=== PATIENT | female | born 1935 | race Caucasian/White ===

== ENCOUNTER → 2016-12-28 | Outpatient (REF) | payer MEDICARE, BC, MEDICAID ==
[~2016-12-28] MED LIST: /WARF5TA PO; AMBIEN PO; CALCIUM PO; CORE25TA PO; GLUC500C4 PO; LISINOPRIL/HCTZ PO; PENTASA PO; TYLE-18 PO; TYLE650T25 PO; VITD PO; ZEST20TA8 PO; [UNRECOGNIZED DRUG - CODE] PO
[2016-12-28 12:57] LABS: ALBUMIN 3.9 GM/DL (3.2-5.2); ALBUMIN/GLOBULIN RATIO 1.34 (1.00-1.93); BILIRUBIN,TOTAL 0.4 MG/DL (0.2-1.0); CALCIUM LEVEL 10.2 MG/DL (8.8-10.2); CREATININE FOR GFR 1.38 MG/DL (0.55-1.02); GLOMERULAR FILTRATION RATE 38.9 (>32); POTASSIUM SERUM 4.2 MEQ/L (3.5-5.1); TOTAL PROTEIN 6.8 GM/DL (6.4-8.2)
== END ==
LOC: M LAB REF 11:57
PROVIDERS: ATTEND Internal Medicine
DX: I10 Essential (primary) hypertension (principal)

== ENCOUNTER → 2017-06-29 | Outpatient (REF) | payer MEDICARE, BC, MEDICAID ==
[2017-06-29 12:02] LABS: MEAN CORPUSCULAR HEMOGLOBIN 30.6 pg (27.0-33.0); MEAN CORPUSCULAR HGB CONC 33.4 g/dl (32.0-36.5); MEAN CORPUSCULAR VOLUME 91.5 fl (80.0-96.0); RED CELL DISTRIBUTION WIDTH 13.4 % (11.5-14.5); WHITE BLOOD COUNT 5.5 K/mm3 (4.0-10.0)
[2017-06-29 12:15] LABS: ALBUMIN/GLOBULIN RATIO 1.33 (1.00-1.93); BILIRUBIN,TOTAL 0.6 MG/DL (0.2-1.0); CALCIUM LEVEL 9.9 MG/DL (8.8-10.2); CREATININE FOR GFR 1.3 MG/DL (0.55-1.02); GLOMERULAR FILTRATION RATE 41.6 (>32); POTASSIUM SERUM 4.1 MEQ/L (3.5-5.1); URIC ACID 8.1 MG/DL (2.6-6.0)
== END ==
LOC: M SFHCPLAZ 09:03
PROVIDERS: ATTEND Internal Medicine
DX: E78.00 Pure hypercholesterolemia, unspecified (principal); Z85.42 Personal history of malignant neoplasm of other parts of uterus; I10 Essential (primary) hypertension; M10.9 Gout, unspecified; E55.9 Vitamin D deficiency, unspecified

== ENCOUNTER → 2017-07-17 | Outpatient (REF) | payer MEDICARE, BC, MEDICAID ==
[2017-07-17 15:51] LABS: INR 3.2
== END ==
LOC: M SFHCPLAZ 15:29
PROVIDERS: ATTEND Nurse Practitioner Adult Health
DX: Z79.01 Long term (current) use of anticoagulants (principal)

== ENCOUNTER → 2018-01-31 | Outpatient (REF) | payer MEDICARE, BC, MEDICAID ==
[2018-01-31 21:29] LABS: ANION GAP 9 MEQ/L (8-16); BLOOD UREA NITROGEN 23 MG/DL (7-18); CALCIUM LEVEL 9.7 MG/DL (8.8-10.2); CARBON DIOXIDE LEVEL 26 MEQ/L (21-32); CHLORIDE LEVEL 109 MEQ/L (98-107); CREATININE FOR GFR 1.43 MG/DL (0.55-1.30); GLOMERULAR FILTRATION RATE 37.2 (>32); GLUCOSE, FASTING 91 MG/DL (70-100); POTASSIUM SERUM 4.6 MEQ/L (3.5-5.1); SODIUM LEVEL 144 MEQ/L (136-145)
[2018-01-31 21:40] LABS: PTH INTACT 171.2 PG/ML (18.5-88.0)
== END ==
LOC: M LAB REF 21:05
DX: N18.3 Chronic kidney disease, stage 3 (moderate) (principal)
CPT/HCPCS: 80048

== ENCOUNTER → 2018-02-25 | Outpatient (CLI) | payer MEDICARE, BC, MEDICAID ==
[2018-02-25 15:21] LABS: HEMATOCRIT 32.4 % (36.0-47.0); HEMOGLOBIN 10.5 g/dl (12.0-15.5); MEAN CORPUSCULAR HEMOGLOBIN 28.5 pg (27.0-33.0); MEAN CORPUSCULAR HGB CONC 32.4 g/dl (32.0-36.5); PLATELET COUNT, AUTOMATED 159 10^3/uL (150-450); RED BLOOD COUNT 3.68 10^6/uL (4.00-5.40); RED CELL DISTRIBUTION WIDTH 14.5 % (11.5-14.5); WHITE BLOOD COUNT 14.7 10^3/uL (4.0-10.0)
[2018-02-25 15:29] LABS: POSITIVE MORPH POS FLAG
[2018-02-25 15:30] LABS: ADD MANUAL DIFFER YES; DIFF SLIDE NUMBER 328
[2018-02-25 15:39] LABS: ALBUMIN/GLOBULIN RATIO 0.94 (1.00-1.93); ALKALINE PHOSPHATASE 110 U/L (45-117); ALT/SGPT 40 U/L (12-78); ANION GAP 8 MEQ/L (8-16); AST/SGOT 47 U/L (7-37); BILIRUBIN,TOTAL 1.1 MG/DL (0.2-1.0); BLOOD UREA NITROGEN 39 MG/DL (7-18); CALCIUM LEVEL 9.4 MG/DL (8.8-10.2); CARBON DIOXIDE LEVEL 24 MEQ/L (21-32); CHLORIDE LEVEL 109 MEQ/L (98-107); CREATININE FOR GFR 2.19 MG/DL (0.55-1.30); GLOMERULAR FILTRATION RATE 22.8 (>32); GLUCOSE, FASTING 157 MG/DL (70-100); POTASSIUM SERUM 3.9 MEQ/L (3.5-5.1); SODIUM LEVEL 141 MEQ/L (136-145); TOTAL PROTEIN 6.2 GM/DL (6.4-8.2)
[2018-02-25 15:53] LABS: BANDS 4 % (< 11); LYMPHOCYTES 1 % (16-52); MONOCYTES 1 % (0-8); NEUTROPHILS 94 % (35-75)
[2018-02-25 15:54] LABS: PLATELET ESTIMATE NORMAL (NORMAL)
== END ==
LOC: M WUC 13:15
DX: N39.0 Urinary tract infection, site not specified (principal); R53.83 Other fatigue
CPT/HCPCS: 80053

== ENCOUNTER 2018-05-02 08:55 | Inpatient (IN) | payer MEDICARE, BC, MEDICAID ==
[2018-05-02 09:57] LABS: BEDSIDE GLUCOSE 80 MG/DL (83-110)
[2018-05-02 10:27] LABS: BASO % 0.3 % (0.0-1.0); HEMOGLOBIN 10.9 g/dl (12.0-15.5); IMMATURE GRANULOCYTE % 4.8 % (0-3.0); LYMPH % 2.2 % (24.0-44.0); MEAN CORPUSCULAR HEMOGLOBIN 28.2 pg (27.0-33.0); MEAN CORPUSCULAR HGB CONC 32.1 g/dl (32.0-36.5); MEAN CORPUSCULAR VOLUME 88.1 fl (80.0-96.0); MONO # 0.2 10^3/uL (0.0-0.8); MONO % 1.9 % (0.0-5.0); NEUTROPHILS # 9.6 10^3/uL (1.8-7.7); NEUTROPHILS % 90.8 % (36.0-66.0); PLATELET COUNT, AUTOMATED 108 10^3/uL (150-450); RED BLOOD COUNT 3.86 10^6/uL (4.00-5.40); RED CELL DISTRIBUTION WIDTH 16.1 % (11.5-14.5); WHITE BLOOD COUNT 10.6 10^3/uL (4.0-10.0)
[2018-05-02 10:30] LABS: VENOUS BASE EXCESS -3.9 (-2.0-2.0); VENOUS HCO3 21.2 MEQ/L (23.0-27.0); VENOUS O2 SATURATION 69.9 % (60.0-80.0); VENOUS PARTIAL PRESSURE CO2 38.3 mmHg (38.0-50.0); VENOUS PARTIAL PRESSURE O2 39.1 mmHg (30.0-50.0); VENOUS STANDARD HCO3 20.7 MEQ/L; VENOUS TOTAL CO2 22.3 MEQ/L (24.0-28.0)
[2018-05-02 10:34] LABS: LYMPH # 0.2 10^3/uL (1.5-4.5); POSITIVE DIFF POS FLAG; POSITIVE MORPH POS FLAG
[2018-05-02 10:58] LABS: AMMONIA < 10 uMOL/L (<32)
[2018-05-02 11:00] LABS: ALBUMIN 2.8 GM/DL (3.2-5.2); ALKALINE PHOSPHATASE 113 U/L (45-117); ALT/SGPT 22 U/L (12-78); ANION GAP 12 MEQ/L (8-16); AST/SGOT 44 U/L (7-37); BILIRUBIN,DIRECT 0.3 MG/DL (0.0-0.2); BILIRUBIN,TOTAL 0.7 MG/DL (0.2-1.0); BLOOD UREA NITROGEN 52 MG/DL (7-18); CALCIUM LEVEL 9.7 MG/DL (8.8-10.2); CARBON DIOXIDE LEVEL 23 MEQ/L (21-32); CHLORIDE LEVEL 107 MEQ/L (98-107); CPK CREATINE PHOSPHOKINASE 746 U/L (26-192); CREATININE FOR GFR 3.77 MG/DL (0.55-1.30); GLOMERULAR FILTRATION RATE 12.2 (>32); GLUCOSE, FASTING 84 MG/DL (70-100); POTASSIUM SERUM 3.9 MEQ/L (3.5-5.1); SODIUM LEVEL 142 MEQ/L (136-145); TOTAL PROTEIN 5.9 GM/DL (6.4-8.2); TROPONIN I < 0.02 NG/ML (< 0.10)
[2018-05-02 11:06] LABS: MB/CK RELATIVE INDEX 2.27 (< OR =4)
[2018-05-02] MEDS: NS 500 ML IV ×3 (11:15→22:33)
[2018-05-02 11:22] LABS: LACTIC ACID SEPSIS PROTOCOL 3.3 MMOL/L (0.4-2.0)
[2018-05-02] MEDS: NS 1,000 ML IV ×2 (11:26→16:15)
[2018-05-02 11:38] LABS: INR 2.62; PROTHROMBIN TIME 29.1 SECONDS (12.4-14.5)
[2018-05-02] MEDS: cefTRIAXone SOD 2 GM in D5W MINI-BAG PLUS 50 ML IV (11:48)
[2018-05-02 11:58] LABS: OSMOLALITY SERUM 309 MOSM/KG (280-301)
[2018-05-02 12:52] LABS: CALCIUM OXALATE CRYSTALS RFX SMALL; KETONE, URINE AUTO RFX NEGATIVE (NEGATIVE); MUCUS, URINE RFX LARGE (NEGATIVE); NITRITE, URINE AUTO RFX NEGATIVE (NEGATIVE); RBC, URINE AUTO RFX 1 /HPF (0-3); SPECIFIC GRAVITY UR AUTO RFX 1.018 (1.002-1.035); SQUAM EPITHELIAL CELL UR AURFX 3 /HPF (0-6); WBC, URINE AUTO RFX 10 /HPF (0-3)
[2018-05-02 13:01] LABS: LEUKOCYTE ESTERASE UR AUTO RFX TRACE (NEGATIVE)
[2018-05-02] MEDS ORDERED: ONDANSETRON 4MG/2ML VIAL (J2405) IV ×2 (14:00→19:00)
[2018-05-02] MEDS ORDERED: PROPOFOL 200 MG/20 ML VIAL As Ordered (17:33)
[2018-05-02] MEDS ORDERED: fentaNYL 100 MCG/2 ML INJECTION (J3010) As Ordered (17:33)
[2018-05-02] MEDS ORDERED: LIDOCAINE 2% INJ 100 MG/5 ML SDV (FOR ANES.) As Ordered (17:33)
[2018-05-02] MEDS ORDERED: MIDAZOLAM INJ 2 MG/2 ML VIAL (J2250) As Ordered (17:33)
[2018-05-02] MEDS: LIDOCAINE 2% 5ML JELLY UROJET As Ordered (18:06)
[2018-05-02] MEDS: CONRAY-60 60% 50ML VIAL (Q9961) As Ordered (18:06)
[2018-05-02] MEDS ORDERED: FLUMAZENIL 0.5 MG/5 ML VIAL As Ordered (18:29)
[2018-05-02] MEDS: LR 1,000 ML IV (19:00)
[2018-05-02] MEDS ORDERED: fentaNYL 100 MCG/2 ML INJECTION (J3010) IV (19:00)
[2018-05-02 20:06] LABS: ABG BASE EXCESS -7.1 (-2.0-2.0); ABG HCO3 17.3 MEQ/L (22.0-26.0); ABG O2 SATURATION 88.9 % (95.0-99.0); ABG PARTIAL PRESSURE CO2 31.2 mmHg (35.0-45.0); ABG PARTIAL PRESSURE O2 58.3 mmHg (75.0-100.0); ABG STANDARD HCO3 18.5 MEQ/L (22.0-26.0); ABG TOTAL CO2 18.3 MEQ/L (23.0-31.0); ABG pH (ARTERIAL) 7.362 UNITS (7.350-7.450)
[2018-05-02] MEDS: ACETAMINOPHEN TAB 650MG DOSE (2X325MG) PO (23:53)
[2018-05-03] MEDS: NS 1,500 ML IV (03:27)
[2018-05-03] MEDS: ACETAMINOPHEN TAB 650MG DOSE (2X325MG) PO (04:24)
[2018-05-03 05:35] LABS: HEMOGLOBIN 9.2 g/dl (12.0-15.5); MEAN CORPUSCULAR HEMOGLOBIN 28.1 pg (27.0-33.0); MEAN CORPUSCULAR HGB CONC 31.7 g/dl (32.0-36.5); MEAN CORPUSCULAR VOLUME 88.7 fl (80.0-96.0); RED BLOOD COUNT 3.27 10^6/uL (4.00-5.40); RED CELL DISTRIBUTION WIDTH 16.2 % (11.5-14.5); WHITE BLOOD COUNT 8.8 10^3/uL (4.0-10.0)
[2018-05-03 05:43] LABS: INR 3.47; PROTHROMBIN TIME 36.6 SECONDS (12.4-14.5)
[2018-05-03 05:53] LABS: ALBUMIN 2.2 GM/DL (3.2-5.2); ALBUMIN/GLOBULIN RATIO 0.59 (1.00-1.93); ALKALINE PHOSPHATASE 63 U/L (45-117); ALT/SGPT 17 U/L (12-78); ANION GAP 14 MEQ/L (8-16); AST/SGOT 38 U/L (7-37); BILIRUBIN,TOTAL 0.6 MG/DL (0.2-1.0); BLOOD UREA NITROGEN 59 MG/DL (7-18); CALCIUM LEVEL 8.7 MG/DL (8.8-10.2); CARBON DIOXIDE LEVEL 18 MEQ/L (21-32); CHLORIDE LEVEL 114 MEQ/L (98-107); CREATININE FOR GFR 3.04 MG/DL (0.55-1.30); GLOMERULAR FILTRATION RATE 15.6 (>32); GLUCOSE, FASTING 77 MG/DL (70-100); MAGNESIUM LEVEL 1.9 MG/DL (1.8-2.4); POTASSIUM SERUM 4.5 MEQ/L (3.5-5.1); SODIUM LEVEL 146 MEQ/L (136-145); TOTAL PROTEIN 5.9 GM/DL (6.4-8.2)
[2018-05-03 05:58] LABS: PLATELET COUNT, AUTOMATED 37 10^3/uL (150-450)
[2018-05-03 06:01] LABS: IMMATURE PLATELET FRACTION % 7.2 % (0.0-9.6)
[2018-05-03 08:40] LABS: PLTBLUE- EDTA FREE CALC 30 K/mm3 (172-450)
[2018-05-03 08:57] LABS: PLTBLUE- EDTA FREE MACHINE 27 10^3/uL (172-450)
[2018-05-03 09:04] LABS: LACTIC ACID SEPSIS PROTOCOL 1.9 MMOL/L (0.4-2.0)
[2018-05-03] MEDS: PERCOCET 5MG/325MG TAB PO ×2 (09:23→19:35)
[2018-05-03] MEDS: cefTRIAXone SOD 1 GM in D5W MINI-BAG PLUS 50 ML IV (12:35)
[2018-05-04 06:01] LABS: HEMATOCRIT 30.6 % (36.0-47.0); HEMOGLOBIN 9.8 g/dl (12.0-15.5); MEAN CORPUSCULAR HEMOGLOBIN 28.2 pg (27.0-33.0); MEAN CORPUSCULAR VOLUME 87.9 fl (80.0-96.0); RED BLOOD COUNT 3.48 10^6/uL (4.00-5.40); RED CELL DISTRIBUTION WIDTH 16.1 % (11.5-14.5); WHITE BLOOD COUNT 10.6 10^3/uL (4.0-10.0)
[2018-05-04 06:02] LABS: PLATELET COUNT, AUTOMATED 35 10^3/uL (150-450)
[2018-05-04 06:03] LABS: IMMATURE PLATELET FRACTION % 11.8 % (0.0-9.6)
[2018-05-04 06:10] LABS: INR 3.21; PROTHROMBIN TIME 34.3 SECONDS (12.4-14.5)
[2018-05-04 06:20] LABS: ALBUMIN 2.1 GM/DL (3.2-5.2); ALBUMIN/GLOBULIN RATIO 0.55 (1.00-1.93); ALKALINE PHOSPHATASE 71 U/L (45-117); ALT/SGPT 18 U/L (12-78); ANION GAP 12 MEQ/L (8-16); AST/SGOT 33 U/L (7-37); BILIRUBIN,TOTAL 0.4 MG/DL (0.2-1.0); BLOOD UREA NITROGEN 74 MG/DL (7-18); CALCIUM LEVEL 9.5 MG/DL (8.8-10.2); CARBON DIOXIDE LEVEL 20 MEQ/L (21-32); CHLORIDE LEVEL 115 MEQ/L (98-107); CREATININE FOR GFR 2.45 MG/DL (0.55-1.30); GLUCOSE, FASTING 73 MG/DL (70-100); MAGNESIUM LEVEL 2.2 MG/DL (1.8-2.4); POTASSIUM SERUM 3.8 MEQ/L (3.5-5.1); SODIUM LEVEL 147 MEQ/L (136-145); TOTAL PROTEIN 5.9 GM/DL (6.4-8.2)
[2018-05-04] MEDS: cefTRIAXone SOD 1 GM in D5W MINI-BAG PLUS 50 ML IV (12:00)
[2018-05-04] MEDS: PERCOCET 5MG/325MG TAB PO (14:32)
[2018-05-05 06:53] LABS: HEMATOCRIT 29.8 % (36.0-47.0); HEMOGLOBIN 9.4 g/dl (12.0-15.5); MEAN CORPUSCULAR HEMOGLOBIN 27.5 pg (27.0-33.0); MEAN CORPUSCULAR HGB CONC 31.5 g/dl (32.0-36.5); MEAN CORPUSCULAR VOLUME 87.1 fl (80.0-96.0); RED BLOOD COUNT 3.42 10^6/uL (4.00-5.40); RED CELL DISTRIBUTION WIDTH 16.3 % (11.5-14.5); WHITE BLOOD COUNT 6.7 10^3/uL (4.0-10.0)
[2018-05-05 06:54] LABS: PLATELET COUNT, AUTOMATED 32 10^3/uL (150-450)
[2018-05-05 06:55] LABS: IMMATURE PLATELET FRACTION % 12.6 % (0.0-9.6)
[2018-05-05 07:02] LABS: INR 2.14; PROTHROMBIN TIME 24.7 SECONDS (12.4-14.5)
[2018-05-05 07:15] LABS: ALBUMIN/GLOBULIN RATIO 0.56 (1.00-1.93); ALKALINE PHOSPHATASE 102 U/L (45-117); ALT/SGPT 20 U/L (12-78); ANION GAP 11 MEQ/L (8-16); AST/SGOT 23 U/L (7-37); BILIRUBIN,TOTAL 0.5 MG/DL (0.2-1.0); BLOOD UREA NITROGEN 73 MG/DL (7-18); CALCIUM LEVEL 9.8 MG/DL (8.8-10.2); CARBON DIOXIDE LEVEL 22 MEQ/L (21-32); CHLORIDE LEVEL 114 MEQ/L (98-107); CREATININE FOR GFR 1.82 MG/DL (0.55-1.30); GLOMERULAR FILTRATION RATE 28.2 (>32); GLUCOSE, FASTING 72 MG/DL (70-100); MAGNESIUM LEVEL 2.3 MG/DL (1.8-2.4); SODIUM LEVEL 147 MEQ/L (136-145); TOTAL PROTEIN 5.6 GM/DL (6.4-8.2)
[2018-05-05] MEDS: cefTRIAXone SOD 1 GM in D5W MINI-BAG PLUS 50 ML IV (12:26)
[2018-05-05] MEDS: PERCOCET 5MG/325MG TAB PO ×2 (12:27→17:23)
[2018-05-05] MEDS: WARFARIN SOD 2.5 MG TAB PO (17:24)
[2018-05-05] MEDS: ACETAMINOPHEN TAB 650MG DOSE (2X325MG) PO (23:08)
[2018-05-06 07:30] LABS: HEMATOCRIT 29.6 % (36.0-47.0); HEMOGLOBIN 9.7 g/dl (12.0-15.5); MEAN CORPUSCULAR HGB CONC 32.8 g/dl (32.0-36.5); MEAN CORPUSCULAR VOLUME 85.3 fl (80.0-96.0); RED BLOOD COUNT 3.47 10^6/uL (4.00-5.40); RED CELL DISTRIBUTION WIDTH 15.8 % (11.5-14.5); WHITE BLOOD COUNT 6.8 10^3/uL (4.0-10.0)
[2018-05-06 07:31] LABS: PLATELET COUNT, AUTOMATED 39 10^3/uL (150-450)
[2018-05-06 07:45] LABS: ALBUMIN 2.1 GM/DL (3.2-5.2); ALBUMIN/GLOBULIN RATIO 0.54 (1.00-1.93); ALKALINE PHOSPHATASE 105 U/L (45-117); ALT/SGPT 24 U/L (12-78); ANION GAP 9 MEQ/L (8-16); AST/SGOT 32 U/L (7-37); BILIRUBIN,TOTAL 0.7 MG/DL (0.2-1.0); BLOOD UREA NITROGEN 63 MG/DL (7-18); CALCIUM LEVEL 9.6 MG/DL (8.8-10.2); CARBON DIOXIDE LEVEL 22 MEQ/L (21-32); CHLORIDE LEVEL 110 MEQ/L (98-107); CREATININE FOR GFR 1.41 MG/DL (0.55-1.30); GLOMERULAR FILTRATION RATE 37.8 (>32); GLUCOSE, FASTING 68 MG/DL (70-100); MAGNESIUM LEVEL 2.1 MG/DL (1.8-2.4); POTASSIUM SERUM 3.6 MEQ/L (3.5-5.1); SODIUM LEVEL 141 MEQ/L (136-145)
[2018-05-06] MEDS: PERCOCET 5MG/325MG TAB PO ×3 (09:08→21:02)
[2018-05-06] MEDS: MESALAMINE 250 MG CR CAP PO ×2 (14:39→21:01)
[2018-05-06] MEDS: cefTRIAXone SOD 1 GM in D5W MINI-BAG PLUS 50 ML IV (14:40)
[2018-05-06] MEDS: CARVedilol 6.25 MG TAB PO ×2 (14:40→21:02)
[2018-05-06] MEDS: WARFARIN SOD 2.5 MG TAB PO (18:11)
[2018-05-07] MEDS ORDERED: cefTRIAXone SOD 1 GM in D5W MINI-BAG PLUS 50 ML IV (06:00)
[2018-05-07 06:29] LABS: HEMATOCRIT 27.4 % (36.0-47.0); MEAN CORPUSCULAR HEMOGLOBIN 27.7 pg (27.0-33.0); MEAN CORPUSCULAR HGB CONC 32.8 g/dl (32.0-36.5); MEAN CORPUSCULAR VOLUME 84.3 fl (80.0-96.0); PLATELET COUNT, AUTOMATED 54 10^3/uL (150-450); RED BLOOD COUNT 3.25 10^6/uL (4.00-5.40); RED CELL DISTRIBUTION WIDTH 15.4 % (11.5-14.5); WHITE BLOOD COUNT 9.9 10^3/uL (4.0-10.0)
[2018-05-07 06:37] LABS: INR 3.74; PROTHROMBIN TIME 38.9 SECONDS (12.4-14.5)
[2018-05-07 06:57] LABS: ALBUMIN/GLOBULIN RATIO 0.56 (1.00-1.93); ALKALINE PHOSPHATASE 100 U/L (45-117); ALT/SGPT 25 U/L (12-78); ANION GAP 12 MEQ/L (8-16); AST/SGOT 31 U/L (7-37); BILIRUBIN,TOTAL 0.6 MG/DL (0.2-1.0); BLOOD UREA NITROGEN 57 MG/DL (7-18); CALCIUM LEVEL 9.3 MG/DL (8.8-10.2); CARBON DIOXIDE LEVEL 21 MEQ/L (21-32); CHLORIDE LEVEL 109 MEQ/L (98-107); CREATININE FOR GFR 1.24 MG/DL (0.55-1.30); GLOMERULAR FILTRATION RATE 43.9 (>32); GLUCOSE, FASTING 89 MG/DL (70-100); MAGNESIUM LEVEL 1.8 MG/DL (1.8-2.4); POTASSIUM SERUM 3.4 MEQ/L (3.5-5.1); SODIUM LEVEL 142 MEQ/L (136-145); TOTAL PROTEIN 5.6 GM/DL (6.4-8.2)
[2018-05-07] MEDS ORDERED: FUROSEMIDE 40 MG/4 ML VIAL (J1940) IV (07:45)
[2018-05-07] MEDS: CARVedilol 6.25 MG TAB PO (09:48)
[2018-05-07] MEDS: MESALAMINE 250 MG CR CAP PO (09:48)
[2018-05-07] MEDS: FUROSEMIDE 40 MG TAB PO (09:49)
[2018-05-07] MEDS: PERCOCET 5MG/325MG TAB PO (09:49)
[2018-05-07] MEDS: LevoFLOXacin 500 MG TABLET PO (09:49)
== END 2018-05-07 11:10 | disposition home or self-care (01) | DRG 871 ==
LOC: M MS5PR 05-03 18:05 → M ED 08:55 → M ED INP 13:52 → M PCU 21:39
PROVIDERS: Internal Medicine
PROC: 0T777DZ Dilation of Left Ureter with Intraluminal Device, Via Natural or Artificial Opening (ICD-10-PCS; principal; 2018-05-02 13:10)
DX: A41.59 Other Gram-negative sepsis (principal); G93.41 Metabolic encephalopathy; N17.9 Acute kidney failure, unspecified; I50.32 Chronic diastolic (congestive) heart failure; I13.0 Hypertensive heart and chronic kidney disease with heart failure and stage 1 through stage 4 chronic kidney disease, or unspecified chronic kidney disease; N13.2 Hydronephrosis with renal and ureteral calculous obstruction; E87.2 Acidosis; R65.20 Severe sepsis without septic shock; Z79.899 Other long term (current) drug therapy; I48.0 Paroxysmal atrial fibrillation; N18.3 Chronic kidney disease, stage 3 (moderate); Z79.01 Long term (current) use of anticoagulants; Z85.828 Personal history of other malignant neoplasm of skin; Z85.42 Personal history of malignant neoplasm of other parts of uterus; D69.6 Thrombocytopenia, unspecified; Z86.73 Personal history of transient ischemic attack (TIA), and cerebral infarction without residual deficits; F03.90 Unspecified dementia, unspecified severity, without behavioral disturbance, psychotic disturbance, mood disturbance, and anxiety

== ENCOUNTER → 2018-05-15 | Outpatient (REF) | payer MEDICARE, BC, MEDICAID ==
[2018-05-15 15:38] LABS: HEMATOCRIT 29.9 % (36.0-47.0); HEMOGLOBIN 9.5 g/dl (12.0-15.5); MEAN CORPUSCULAR HEMOGLOBIN 27.8 pg (27.0-33.0); MEAN CORPUSCULAR HGB CONC 31.8 g/dl (32.0-36.5); MEAN CORPUSCULAR VOLUME 87.4 fl (80.0-96.0); PLATELET COUNT, AUTOMATED 570 10^3/uL (150-450); RED BLOOD COUNT 3.42 10^6/uL (4.00-5.40); RED CELL DISTRIBUTION WIDTH 15.4 % (11.5-14.5); WHITE BLOOD COUNT 16.6 10^3/uL (4.0-10.0)
[2018-05-15 16:02] LABS: ALBUMIN 2.4 GM/DL (3.2-5.2); ALKALINE PHOSPHATASE 88 U/L (45-117); ALT/SGPT 15 U/L (12-78); ANION GAP 11 MEQ/L (8-16); AST/SGOT 15 U/L (7-37); BILIRUBIN,TOTAL 0.4 MG/DL (0.2-1.0); BLOOD UREA NITROGEN 23 MG/DL (7-18); CALCIUM LEVEL 9.6 MG/DL (8.8-10.2); CARBON DIOXIDE LEVEL 27 MEQ/L (21-32); CHLORIDE LEVEL 99 MEQ/L (98-107); CREATININE FOR GFR 1.39 MG/DL (0.55-1.30); GLOMERULAR FILTRATION RATE 38.5 (>32); GLUCOSE, FASTING 102 MG/DL (70-100); POTASSIUM SERUM 4.7 MEQ/L (3.5-5.1); SODIUM LEVEL 137 MEQ/L (136-145); TOTAL PROTEIN 6.4 GM/DL (6.4-8.2)
== END ==
LOC: M SFHCPLAZ 13:51
DX: I12.9 Hypertensive chronic kidney disease with stage 1 through stage 4 chronic kidney disease, or unspecified chronic kidney disease (principal); N18.3 Chronic kidney disease, stage 3 (moderate); Z86.19 Personal history of other infectious and parasitic diseases
CPT/HCPCS: 80053

== ENCOUNTER 2018-05-20 12:10 | Emergency (ER) | payer MEDICARE, BC, MEDICAID ==
[2018-05-20 12:59] LABS: BASO # 0.1 10^3/uL (0.0-0.2); EOS # 0.4 10^3/uL (0.0-0.50); EOS % 3.4 % (0.0-3.0); HEMATOCRIT 26.5 % (36.0-47.0); HEMOGLOBIN 8.4 g/dl (12.0-15.5); IMMATURE GRANULOCYTE % 3.4 % (0-3.0); LYMPH # 0.9 10^3/uL (1.5-4.5); LYMPH % 7.6 % (24.0-44.0); MEAN CORPUSCULAR HEMOGLOBIN 27.5 pg (27.0-33.0); MEAN CORPUSCULAR HGB CONC 31.7 g/dl (32.0-36.5); MEAN CORPUSCULAR VOLUME 86.9 fl (80.0-96.0); MONO # 0.9 10^3/uL (0.0-0.8); MONO % 7.5 % (0.0-5.0); NEUTROPHILS # 8.8 10^3/uL (1.8-7.7); NEUTROPHILS % 77.1 % (36.0-66.0); PLATELET COUNT, AUTOMATED 502 10^3/uL (150-450); RED BLOOD COUNT 3.05 10^6/uL (4.00-5.40); RED CELL DISTRIBUTION WIDTH 15.6 % (11.5-14.5); WHITE BLOOD COUNT 11.4 10^3/uL (4.0-10.0)
[2018-05-20 13:09] LABS: PROTHROMBIN TIME 48.4 SECONDS (12.1-14.4)
[2018-05-20 13:18] LABS: INR 5.09
[2018-05-20 13:23] LABS: ALBUMIN/GLOBULIN RATIO 0.42 (1.00-1.93); ALKALINE PHOSPHATASE 87 U/L (45-117); ALT/SGPT 28 U/L (12-78); ANION GAP 9 MEQ/L (8-16); AST/SGOT 30 U/L (7-37); BILIRUBIN,DIRECT 0.1 MG/DL (0.0-0.2); BILIRUBIN,TOTAL 0.3 MG/DL (0.2-1.0); BLOOD UREA NITROGEN 24 MG/DL (7-18); CALCIUM LEVEL 9.9 MG/DL (8.8-10.2); CARBON DIOXIDE LEVEL 26 MEQ/L (21-32); CHLORIDE LEVEL 100 MEQ/L (98-107); CK-MB VALUE MASS < 1.0 NG/ML (<3.6); CPK CREATINE PHOSPHOKINASE 22 U/L (26-192); GLOMERULAR FILTRATION RATE 38.1 (>32); GLUCOSE, FASTING 76 MG/DL (70-100); LIPASE 74 U/L (73-393); MB/CK RELATIVE INDEX 4.54 (< OR =4); POTASSIUM SERUM 4.2 MEQ/L (3.5-5.1); SODIUM LEVEL 135 MEQ/L (136-145); TOTAL PROTEIN 6.8 GM/DL (6.4-8.2); TROPONIN I < 0.02 NG/ML (< 0.10)
[2018-05-20] MEDS: ONDANSETRON 4MG/2ML VIAL (J2405) IV (13:38)
[2018-05-20] MEDS: NS 1,000 ML IV (13:38)
[2018-05-20] MEDS: MORPHINE 4 MG/ML 1ML VIAL/SYRINGE (J2270) IV (13:39)
[2018-05-20 14:24] LABS: KETONE, URINE AUTO RFX NEGATIVE (NEGATIVE); LEUKOCYTE ESTERASE UR AUTO RFX 3+ (NEGATIVE); MUCUS, URINE RFX SMALL (NEGATIVE); NITRITE, URINE AUTO RFX NEGATIVE (NEGATIVE); RBC, URINE AUTO RFX 125 /HPF (0-3); SPECIFIC GRAVITY UR AUTO RFX 1.013 (1.002-1.035); SQUAM EPITHELIAL CELL UR AURFX 3 /HPF (0-6); WBC, URINE AUTO RFX 77 /HPF (0-3)
== END 2018-05-20 19:23 | disposition home or self-care (01) ==
LOC: M ED 12:10
DX: N39.0 Urinary tract infection, site not specified (principal); R10.9 Unspecified abdominal pain; N28.9 Disorder of kidney and ureter, unspecified; I10 Essential (primary) hypertension; Z86.73 Personal history of transient ischemic attack (TIA), and cerebral infarction without residual deficits; Z79.01 Long term (current) use of anticoagulants; Z79.2 Long term (current) use of antibiotics; Z79.899 Other long term (current) drug therapy; Z87.19 Personal history of other diseases of the digestive system

== ENCOUNTER → 2018-06-12 | Outpatient (REF) | payer MEDICARE, BC, MEDICAID ==
[2018-06-12 15:31] LABS: HEMATOCRIT 31.7 % (36.0-47.0); MEAN CORPUSCULAR HEMOGLOBIN 28.7 pg (27.0-33.0); MEAN CORPUSCULAR HGB CONC 31.5 g/dl (32.0-36.5); MEAN CORPUSCULAR VOLUME 90.8 fl (80.0-96.0); PLATELET COUNT, AUTOMATED 281 10^3/uL (150-450); RED BLOOD COUNT 3.49 10^6/uL (4.00-5.40); RED CELL DISTRIBUTION WIDTH 16.9 % (11.5-14.5); WHITE BLOOD COUNT 8.1 10^3/uL (4.0-10.0)
== END ==
LOC: M SFHCPLAZ 13:50
DX: N18.3 Chronic kidney disease, stage 3 (moderate) (principal); D63.1 Anemia in chronic kidney disease
CPT/HCPCS: 85027

== ENCOUNTER → 2018-06-17 | Outpatient (REF) | payer MEDICARE, BC, MEDICAID | LOC: M LAB REF 20:59 | DX: R19.7 Diarrhea, unspecified (principal) | CPT/HCPCS: 87493 ==

== ENCOUNTER → 2018-07-02 | Outpatient (REF) | payer MEDICARE, BC, MEDICAID ==
[2018-07-02 10:51] LABS: HEMATOCRIT 30.6 % (36.0-47.0); HEMOGLOBIN 9.7 g/dl (12.0-15.5); MEAN CORPUSCULAR HEMOGLOBIN 28.7 pg (27.0-33.0); MEAN CORPUSCULAR HGB CONC 31.7 g/dl (32.0-36.5); MEAN CORPUSCULAR VOLUME 90.5 fl (80.0-96.0); PLATELET COUNT, AUTOMATED 306 10^3/uL (150-450); RED BLOOD COUNT 3.38 10^6/uL (4.00-5.40); RED CELL DISTRIBUTION WIDTH 16.3 % (11.5-14.5); WHITE BLOOD COUNT 6.9 10^3/uL (4.0-10.0)
[2018-07-02 11:25] LABS: ALBUMIN 2.6 GM/DL (3.2-5.2); ALKALINE PHOSPHATASE 107 U/L (45-117); ALT/SGPT 13 U/L (12-78); ANION GAP 8 MEQ/L (8-16); AST/SGOT 16 U/L (7-37); BILIRUBIN,TOTAL 0.3 MG/DL (0.2-1.0); BLOOD UREA NITROGEN 11 MG/DL (7-18); CALCIUM LEVEL 9.2 MG/DL (8.8-10.2); CARBON DIOXIDE LEVEL 26 MEQ/L (21-32); CHLORIDE LEVEL 110 MEQ/L (98-107); CHOLESTEROL LEVEL 114 MG/DL (<200); GLOMERULAR FILTRATION RATE 50.4 (>32); GLUCOSE, FASTING 71 MG/DL (70-100); HDL CHOLESTEROL 50 MG/DL (>40); MAGNESIUM LEVEL 1.6 MG/DL (1.8-2.4); NON-HDL-C 64 MG/DL; SODIUM LEVEL 144 MEQ/L (136-145); TOTAL PROTEIN 5.5 GM/DL (6.4-8.2); TRIGLYCERIDES LEVEL 110 MG/DL (<150); URIC ACID 6.7 MG/DL (2.6-6.0)
== END ==
LOC: M LABDRAW1 10:29
DX: I12.9 Hypertensive chronic kidney disease with stage 1 through stage 4 chronic kidney disease, or unspecified chronic kidney disease (principal); N18.3 Chronic kidney disease, stage 3 (moderate); E78.00 Pure hypercholesterolemia, unspecified; M10.9 Gout, unspecified
CPT/HCPCS: 83735

== ENCOUNTER → 2018-12-17 | Outpatient (REF) | payer MEDICARE, BC, MEDICAID ==
[~2018-12-17] MED LIST changes: +AMLO2.5T3 PO; +AMLO5TAB6 PO; +BACT800T5 PO; +BENA25TA10 PO; +CALC1CAP31 PO; +CARV12.5 PO; +CLOB0.77 OU; +FURO20TA2 PO; +LEVO250T12 PO; +MELA3TAB49 PO; +MIRA3350 PO; +NORCOTAB PO; +OXYB5TAB10 PO; +PENT500C PO; +REST0.05 OU; +RITA5TAB PO; +SYST1SOL OU; +TRAM50TA2 PO; +VITA200016 PO; +WARF-18 PO; +WARF4TAB51 PO
[2018-12-17 15:05] LABS: HEMATOCRIT 31.5 % (36.0-47.0); HEMOGLOBIN 10.2 g/dl (12.0-15.5); MEAN CORPUSCULAR HEMOGLOBIN 30.2 pg (27.0-33.0); MEAN CORPUSCULAR HGB CONC 32.4 g/dl (32.0-36.5); MEAN CORPUSCULAR VOLUME 93.2 fl (80.0-96.0); PLATELET COUNT, AUTOMATED 330 10^3/uL (150-450); RED BLOOD COUNT 3.38 10^6/uL (4.00-5.40); WHITE BLOOD COUNT 9.4 10^3/uL (4.0-10.0)
[2018-12-17 15:29] LABS: ALBUMIN 2.7 GM/DL (3.2-5.2); BILIRUBIN,TOTAL 0.3 MG/DL (0.2-1.0); CALCIUM LEVEL 9.4 MG/DL (8.8-10.2); CREATININE FOR GFR 1.51 MG/DL (0.55-1.30); GLOMERULAR FILTRATION RATE 34.9 (>32); MAGNESIUM LEVEL 2.4 MG/DL (1.8-2.4); POTASSIUM SERUM 4.5 MEQ/L (3.5-5.1); URIC ACID 8.5 MG/DL (2.6-6.0)
[2018-12-17 15:38] LABS: PTH INTACT 138.1 PG/ML (18.5-88.0); TOTAL 25(OH) VITAMIN D 50.3 NG/ML (30.0-100.0)
== END ==
LOC: M LAB REF 14:04
PROVIDERS: ATTEND Internal Medicine
DX: Z85.42 Personal history of malignant neoplasm of other parts of uterus (principal); I12.9 Hypertensive chronic kidney disease with stage 1 through stage 4 chronic kidney disease, or unspecified chronic kidney disease; N18.3 Chronic kidney disease, stage 3 (moderate); M10.9 Gout, unspecified; E55.9 Vitamin D deficiency, unspecified

== ENCOUNTER → 2019-07-31 | Outpatient (REF) | payer MEDICARE, BC, MEDICAID ==
[~2019-07-31] MED LIST changes: -/WARF5TA PO; +COUM1TAB17 PO; +HYDR-3715 PO; -NORCOTAB PO
[2019-07-31 11:05] LABS: ALBUMIN 2.7 GM/DL (3.2-5.2); BILIRUBIN,TOTAL 0.3 MG/DL (0.2-1.0); CALCIUM LEVEL 9.7 MG/DL (8.8-10.2); CREATININE FOR GFR 1.92 MG/DL (0.55-1.30); GLOMERULAR FILTRATION RATE 26.4 (>32); MAGNESIUM LEVEL 2.3 MG/DL (1.8-2.4); POTASSIUM SERUM 3.7 MEQ/L (3.5-5.1); TOTAL PROTEIN 5.3 GM/DL (6.4-8.2); URIC ACID 8.3 MG/DL (2.6-6.0)
[2019-07-31 11:07] LABS: HEMATOCRIT 30.2 % (36.0-47.0); HEMOGLOBIN 9.8 g/dl (12.0-15.5); MEAN CORPUSCULAR HEMOGLOBIN 31.6 pg (27.0-33.0); MEAN CORPUSCULAR HGB CONC 32.5 g/dl (32.0-36.5); MEAN CORPUSCULAR VOLUME 97.4 fl (80.0-96.0); PLATELET COUNT, AUTOMATED 233 10^3/uL (150-450); WHITE BLOOD COUNT 6.3 10^3/uL (4.0-10.0)
[2019-07-31 11:34] LABS: PTH INTACT 97.4 PG/ML (18.5-88.0)
== END ==
LOC: M LAB REF 09:51
PROVIDERS: ATTEND Internal Medicine
DX: M10.9 Gout, unspecified (principal); N18.3 Chronic kidney disease, stage 3 (moderate); I12.9 Hypertensive chronic kidney disease with stage 1 through stage 4 chronic kidney disease, or unspecified chronic kidney disease; Z85.42 Personal history of malignant neoplasm of other parts of uterus

== ENCOUNTER → 2019-08-18 | Outpatient (REF) | payer MEDICARE, BC, MEDICAID ==
[~2019-08-18] MED LIST changes: +DICL1GEL TOP; +DIPH25CA32 PO; +ROCA0.5C PO; +TYLE650T35 PO
[2019-08-18 13:53] LABS: CREATININE FOR GFR 1.81 MG/DL (0.55-1.30); GLOMERULAR FILTRATION RATE 28.3 (>32); POTASSIUM SERUM 4.5 MEQ/L (3.5-5.1)
[2019-08-18 13:59] LABS: PTH INTACT 111.3 PG/ML (18.5-88.0)
== END ==
LOC: M SFHCPLAZ 13:13
PROVIDERS: ATTEND Internal Medicine
DX: N18.3 Chronic kidney disease, stage 3 (moderate) (principal)

== ENCOUNTER → 2019-09-09 | Outpatient (REF) | payer MEDICARE, BC, MEDICAID ==
[~2019-09-09] MED LIST changes: -DICL1GEL TOP; -DIPH25CA32 PO; -ROCA0.5C PO; -TYLE650T35 PO
[2019-09-09 14:28] LABS: CALCIUM LEVEL 9.5 MG/DL (8.8-10.2); CREATININE FOR GFR 1.91 MG/DL (0.55-1.30); GLOMERULAR FILTRATION RATE 26.6 (>32); MAGNESIUM LEVEL 2.3 MG/DL (1.8-2.4); POTASSIUM SERUM 3.6 MEQ/L (3.5-5.1)
[2019-09-09 14:38] LABS: PTH INTACT 112.1 PG/ML (18.5-88.0)
== END ==
LOC: M LAB REF 13:40
PROVIDERS: ATTEND Internal Medicine
DX: I12.9 Hypertensive chronic kidney disease with stage 1 through stage 4 chronic kidney disease, or unspecified chronic kidney disease (principal)

== ENCOUNTER → 2019-10-03 | Outpatient (REF) | payer MEDICARE, BC, MEDICAID ==
[2019-10-03 22:25] LABS: AMORPHOUS SEDIMENT SMALL (NEGATIVE); APPEARANCE, URINE CLOUDY (CLEAR); BACTERIA, URINE AUTO NEGATIVE (NEGATIVE); BILIRUBIN, URINE AUTO NEGATIVE (NEGATIVE); BLOOD, URINE BLOOD 3+ (NEGATIVE); COLOR, URINE YELLOW (YELLOW); GLUCOSE, URINE (UA) AUTO NEGATIVE (NEGATIVE); KETONE, URINE AUTO NEGATIVE (NEGATIVE); LEUKOCYTE ESTERASE, URINE AUTO 3+ (NEGATIVE); NITRITE, URINE AUTO NEGATIVE (NEGATIVE); PROTEIN, URINE AUTO NEGATIVE (NEGATIVE); RBC, URINE AUTO 41 /HPF (0-3); SPECIFIC GRAVITY URINE AUTO 1.005 (1.002-1.035); SQUAMOUS EPITHELIAL CELL UR AU 0 /HPF (0-6); UROBILINOGEN, URINE AUTO 0.2 mg/dL (0.0-2.0); WBC, URINE AUTO 97 /HPF (0-3)
== END ==
LOC: M LAB 16:27
PROVIDERS: ATTEND Nurse Practitioner Family
DX: R30.0 Dysuria (principal)

== ENCOUNTER → 2019-10-17 | Outpatient (REF) | payer MEDICARE, BC, MEDICAID ==
[2019-10-17 16:40] LABS: CREATININE FOR GFR 2.6 MG/DL (0.55-1.30); GLOMERULAR FILTRATION RATE 18.6 (>32); POTASSIUM SERUM 3.8 MEQ/L (3.5-5.1)
[2019-10-17 16:58] LABS: PTH INTACT 93.8 PG/ML (18.5-88.0)
== END ==
LOC: M LAB REF 16:07
PROVIDERS: ATTEND Internal Medicine
DX: I12.9 Hypertensive chronic kidney disease with stage 1 through stage 4 chronic kidney disease, or unspecified chronic kidney disease (principal); N18.9 Chronic kidney disease, unspecified

== ENCOUNTER → 2019-11-03 | Outpatient (REF) | payer MEDICARE, BC, MEDICAID ==
[2019-11-03 21:50] LABS: CALCIUM LEVEL 12.3 MG/DL (8.8-10.2); CREATININE FOR GFR 3.55 MG/DL (0.55-1.30); MAGNESIUM LEVEL 2.9 MG/DL (1.8-2.4); POTASSIUM SERUM 3.7 MEQ/L (3.5-5.1)
== END ==
LOC: M LAB REF 10:20
PROVIDERS: ATTEND Internal Medicine
DX: I12.9 Hypertensive chronic kidney disease with stage 1 through stage 4 chronic kidney disease, or unspecified chronic kidney disease (principal)

== ENCOUNTER → 2019-11-10 | Outpatient (REF) | payer MEDICARE, BC, MEDICAID ==
[2019-11-10 21:23] LABS: HEMOGLOBIN 10.8 g/dl (12.0-15.5); MEAN CORPUSCULAR HEMOGLOBIN 30.1 pg (27.0-33.0); MEAN CORPUSCULAR HGB CONC 30.9 g/dl (32.0-36.5); MEAN CORPUSCULAR VOLUME 97.5 fl (80.0-96.0); PLATELET COUNT, AUTOMATED 265 10^3/uL (150-450); RED BLOOD COUNT 3.59 10^6/uL (4.00-5.40); WHITE BLOOD COUNT 7.6 10^3/uL (4.0-10.0)
[2019-11-10 21:38] LABS: INR 2.21; PROTHROMBIN TIME 24.4 SECONDS (11.8-14.0)
[2019-11-10 21:49] LABS: CALCIUM LEVEL 11.9 MG/DL (8.8-10.2); CREATININE FOR GFR 3.72 MG/DL (0.55-1.30); GLOMERULAR FILTRATION RATE 12.3 (>32); MAGNESIUM LEVEL 2.7 MG/DL (1.8-2.4); POTASSIUM SERUM 3.7 MEQ/L (3.5-5.1)
== END ==
LOC: M LAB REF 09:11
PROVIDERS: ATTEND Internal Medicine
DX: I12.9 Hypertensive chronic kidney disease with stage 1 through stage 4 chronic kidney disease, or unspecified chronic kidney disease (principal); M10.9 Gout, unspecified; N18.3 Chronic kidney disease, stage 3 (moderate); Z79.01 Long term (current) use of anticoagulants

== ENCOUNTER → 2019-11-18 | Outpatient (REF) | payer MEDICARE, BC, MEDICAID ==
[2019-11-18 14:06] LABS: CALCIUM LEVEL 12.2 MG/DL (8.8-10.2); CREATININE FOR GFR 3.88 MG/DL (0.55-1.30); GLOMERULAR FILTRATION RATE 11.7 (>32); MAGNESIUM LEVEL 2.8 MG/DL (1.8-2.4)
[2019-11-18 14:17] LABS: PTH INTACT 101.7 PG/ML (18.5-88.0)
== END ==
LOC: M SFHCPLAZ 13:11
PROVIDERS: ATTEND Internal Medicine
DX: N18.3 Chronic kidney disease, stage 3 (moderate) (principal)

== ENCOUNTER → 2019-11-27 | Outpatient (CLI) | payer MEDICARE, MEDICAID ==
[2019-11-27 11:58] LABS: CALCIUM LEVEL 11.9 MG/DL (8.8-10.2); CREATININE FOR GFR 3.75 MG/DL (0.55-1.30); GLOMERULAR FILTRATION RATE 12.2 (>32); MAGNESIUM LEVEL 2.7 MG/DL (1.8-2.4); PHOSPHORUS LEVEL 3.8 MG/DL (2.5-4.9); POTASSIUM SERUM 3.4 MEQ/L (3.5-5.1)
--- NOTE | 2019-11-27 12:55 | REP ---
RENAL ULTRASOUND: Real-time sonographic evaluation of the kidneys performed. Kidneys are somewhat atrophic, right kidney measuring 8.6 x 3.1 x 4.2 cm and left kidney 7.6 x 4.7 x 4.4 cm. There is somewhat increased echotexture diffusely of the right kidney suggesting medical renal disease. There is no hydronephrosis bilaterally. There appear to be vascular calcifications in each kidney. Cyst of the upper pole of the left kidney measures 1.4 cm in diameter. No other significant abnormality is seen. IMPRESSION: Atrophic kidneys with cortical thinning. Hyperechoic echotexture of the right kidney suggests medical renal disease. No hydronephrosis. Left renal cyst. Electronically Signed by Gerry Chiang MD 11/27/2019 05:43 P
== END ==
LOC: M RAD 10:19
PROVIDERS: ATTEND Internal Medicine
DX: N18.3 Chronic kidney disease, stage 3 (moderate) (principal); N28.1 Cyst of kidney, acquired; N26.1 Atrophy of kidney (terminal)

== ENCOUNTER 2019-12-07 08:51 | Inpatient (IN) | payer MEDICARE, MEDICAID ==
[~2019-12-07] VITALS: Ht 162.6 cm; Wt 63.5 kg
[2019-12-07] MEDS ORDERED: PENT500C PO (09:13)
[2019-12-07] MEDS ORDERED: TYLE650T35 PO (09:13)
[2019-12-07] MEDS ORDERED: DICL1GEL TOP (09:13)
[2019-12-07] MEDS ORDERED: NS 1,000 ML IV SCH (09:15)
[2019-12-07 09:35] LABS: VENOUS BASE EXCESS 1.9 (-2.0-2.0); VENOUS HCO3 27.6 MEQ/L (23.0-27.0); VENOUS O2 SATURATION 58.9 % (60.0-80.0); VENOUS PARTIAL PRESSURE CO2 48.2 mmHg (38.0-50.0); VENOUS PARTIAL PRESSURE O2 32.4 mmHg (30.0-50.0); VENOUS PH 7.376 UNITS (7.330-7.430); VENOUS STANDARD HCO3 25.3 MEQ/L; VENOUS TOTAL CO2 29.1 MEQ/L (24.0-28.0)
[2019-12-07 09:38] LABS: BASO % 0.2 % (0.0-1.0); HEMATOCRIT 36.3 % (36.0-47.0); HEMOGLOBIN 11.3 g/dl (12.0-15.5); LYMPH # 0.7 10^3/uL (1.5-5.0); MEAN CORPUSCULAR HGB CONC 31.1 g/dl (32.0-36.5); MEAN CORPUSCULAR VOLUME 96.3 fl (80.0-96.0); MONO # 0.9 10^3/uL (0.0-0.8); MONO % 5.3 % (0.0-5.0); NEUTROPHILS # 15.6 10^3/uL (1.5-8.5); NEUTROPHILS % 89.8 % (36.0-66.0); PLATELET COUNT, AUTOMATED 267 10^3/uL (150-450); RED BLOOD COUNT 3.77 10^6/uL (4.00-5.40); WHITE BLOOD COUNT 17.4 10^3/uL (4.0-10.0)
[2019-12-07 09:51] LABS: INR 2.79; PROTHROMBIN TIME 29.3 SECONDS (11.8-14.0)
--- NOTE | 2019-12-07 10:04 | REP ---
CT brain without contrast: History: Altered mental status. Comparison study: May 02, 2018. CT findings: Digital preliminary configuration management consultant radiograph is unremarkable. The bony calvarium is intact. There is mild hyperostosis frontalis interna. Vascular calcification is seen in the distal vertebral arteries and distal carotid arteries bilaterally. No intraorbital abnormality is seen. Visualized paranasal sinuses are clear. On soft tissue window settings there is moderate generalized volume loss. There is no evidence of intracranial hemorrhage. No extra-axial fluid collection, mass, or midline shift is seen. There is no evidence of infarction. Mild small vessel changes are seen. The findings are unchanged. Impression: Vascular calcification and generalized volume loss. No acute intracranial abnormality. Electronically Signed by Jaden Abdalla MD 12/07/2019 09:55 A
[2019-12-07 10:12] LABS: ALT/SGPT 10 U/L (12-78); BILIRUBIN,DIRECT 0.2 MG/DL (0.0-0.2); BILIRUBIN,TOTAL 0.5 MG/DL (0.2-1.0); BLOOD UREA NITROGEN 42 MG/DL (7-18); CALCIUM LEVEL 12.6 MG/DL (8.8-10.2); CARBON DIOXIDE LEVEL 29 MEQ/L (21-32); CHLORIDE LEVEL 109 MEQ/L (98-107); CK-MB VALUE MASS < 1.0 NG/ML (<3.6); CPK CREATINE PHOSPHOKINASE 39 U/L (26-192); CREATININE FOR GFR 4.81 MG/DL (0.55-1.30); GLOMERULAR FILTRATION RATE 9.1 (>32); GLUCOSE, FASTING 115 MG/DL (70-100); MB/CK RELATIVE INDEX 2.56 (< OR =4); POTASSIUM SERUM 4.1 MEQ/L (3.5-5.1); SODIUM LEVEL 144 MEQ/L (136-145); THYROID STIMULATING HORMONE 0.882 uIU/ML (0.358-3.740); TROPONIN I < 0.02 NG/ML (< 0.10)
[2019-12-07] MEDS ORDERED: cefTRIAXone SOD 2 GM in D5W MINI-BAG PLUS 50 ML IV ONE (10:45)
--- NOTE | 2019-12-07 10:54 | REP ---
Portable chest x-ray: Single view. History: Altered mental status. Comparison study: May 23, 2018. Findings: Monitoring electrodes IV tubing are seen overlying the chest. The lungs are well inflated and free of infiltrate. The pleural angles are sharp. Heart is not felt to be enlarged. Pulmonary vasculature is not increased. There is some vascular calcification. Impression: No acute disease. Electronically Signed by Jaden Abdalla MD 12/07/2019 10:46 A
[2019-12-07 12:36] LABS: INFLUENZA A AMPLIFICATION NEGATIVE (NEGATIVE); INFLUENZA B AMPLIFICATION NEGATIVE (NEGATIVE)
[2019-12-07 12:38] LABS: BILIRUBIN, URINE MANUAL NEGATIVE (NEGATIVE); GLUCOSE, URINE (UA) MANUAL NEGATIVE (NEGATIVE); KETONE, URINE MANUAL NEGATIVE (NEGATIVE); UROBILINOGEN, URINE MANUAL NORMAL (NORMAL)
[2019-12-07 12:52] LABS: RBC, URINE 30-40 /hpf (0-3); SQUAMOUS EPITHELIAL CELL URINE SMALL AMOUNT /hpf (SMALL AMT)
[2019-12-07 12:53] LABS: AMORPHOUS SEDIMENT, URINE SMALL AMOUNT (NEGATIVE); HYALINE CAST, URINE NONE SEEN /lpf (0-1)
[2019-12-07 12:54] LABS: BACTERIA, URINE SMALL AMOUNT; TRANSITIONAL EPI CELLS, URINE SMALL AMOUNT /hpf
--- NOTE | 2019-12-07 14:30 | REP ---
CT ABDOMEN AND PELVIS WITHOUT IV OR ORAL CONTRAST: HISTORY: Fever and vomiting. Comparison CT study is from May 20, 2018. CT FINDINGS: Preliminary digital living skills advisor radiograph is unremarkable. There are some fibrotic changes in the lung bases. Vascular calcification is noted. No focal hepatic or splenic lesion is seen. There is a small sliding-type hiatal hernia. Normal adrenal glands are seen. No abnormalities noted in the gallbladder or in the pancreas. There is acute moderate left-sided hydronephrosis with extensive perinephric stranding and peripelvic stranding. There are two or three mid ureteral calculi, the largest and distal most of which measures 6 mm in greatest diameter. The lowest of these is in the mid ureter just above the crossing of the left common iliac artery. The distal most ureter is normal in caliber. No bladder calculus is seen. No hydronephrosis is noted on the right. There is an intrarenal calculus, however in the right kidney upper pole collecting system measuring 4 mm in diameter. There is mild left colonic diverticulosis without CT evidence of diverticulitis. No other abdominal wall defect is seen. The patient is status post hysterectomy. IMPRESSION: Acute moderate left-sided hydronephrosis and hydroureter due to the presence of two or three left mid ureteral calculi just above the level of the pelvis. The largest and most distal of these calculi is 6 mm. There is an intrarenal calculus in the upper pole of the right kidney. Electronically Signed by Jaden Abdalla MD 12/07/2019 02:32 P
[2019-12-07] MEDS ORDERED: DIPH25CA32 PO (14:31)
[2019-12-07] MEDS ORDERED: ROCA0.5C PO (14:31)
[2019-12-07] MEDS ORDERED: WARF-18 PO (14:31)
[2019-12-07] MEDS ORDERED: POLYVINYL ALCOHOL OPHTH SOLN 15 ML(LIQUITEARS) OU PRN (16:15)
[2019-12-07] MEDS ORDERED: ONDANSETRON 4MG/2ML VIAL (J2405) IV PRN (17:15)
--- NOTE | 2019-12-07 17:15 | HPEPDOC ---
General Date of Admission 12/07/19 Date of Service: Dec 07, 2019 Chief Complaint The patient is a 84-year-old female admitted with a reason for visit of FEVER. 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 It has worse tiffani with 2 episodes of vomiting and 1 episode of loose motion. Patient was confused and history was taken from other Nuns and from the ED physician. SHe did tell me she was feeling sick and had some abdominal pain. thinks mostly on the right could not describe anything more. Knew her name and knew she was in the Emergency room could not not tell the name of the hospital. As per the Nuns the vomitus was bilious and id not have any blood in, it. She has been eating poorly. She does have mild dementia but has been more confused than usual . Work up in the ED showed an elevated WBC to 17 K, elevated lactate, dirty u/A with RBCs and WBCs . Her creatinine was much higher than her baseline. CT abdomen and pelvis showed Acute moderate left-sided hydronephrosis and hydroureter due to the presence of two or three left mid ureteral calculi just above the level of the pelvis. The largest and most distal of these calculi is 6 mm. There is an intrarenal calculus in the upper pole of the right kidney. CXR and Head CT were negative for any acute disease. She was admitted for Complicated UTI with sepsis, ERON on CKD with obstructive uropathy of the left due to several left ureteric stones. Home Medications Scheduled Acetaminophen (Tylenol Arthritis) 650 Mg Tablet.er, 650 MG PO DAILY, (Reported) Amlodipine Besylate (Amlodipine Besylate) 5 Mg Tab, 5 MG PO DAILY, (Reported) Calcitriol (Rocaltrol) 0.5 Mcg Capsule, 0.5 MCG PO DAILY, (Reported) Carvedilol (Carvedilol) 12.5 Mg Tab, 6.25 MG PO BID, (Reported) Cyclosporine (Restasis) 0.05 % Emu, 1 DROP OU BID, (Reported) Mesalamine (Pentasa) 500 Mg Capsule.er, 500 MG PO BID, (Reported) 2ND DOSE QPM Warfarin Sodium (Warfarin Sodium) 2.5 Mg Tablet, 1.25 MG PO QPM, (Reported) Scheduled PRN Diclofenac Sodium (Diclofenac Sodium) 3% 100GM Gel..gram., 1 APLCT TOP Q6H PRN for PAIN, (Reported) Diphenhydramine HCl (Diphenhydramine HCl) 25 Mg Capsule, 25 MG PO QHS PRN for INSOMNIA, (Reported) Polyethylene Glycol 3350 (Miralax) 1 Pow Pow, 17 GRAM PO DAILY PRN for CONSTIPATION, (Reported) Propylene Glycol/Peg 400 (Systane 0.3-0.4% Eye Drops) 15 Ml Bela, 1 DROP OU BID PRN for DRY EYES, (Reported) Tramadol HCl (Tramadol HCl) 50 Mg Tab, 50 MG PO Q4H PRN for PAIN, (Reported) Allergies Coded Allergies: No Known Allergies (Unverified , 02/12/13) Past Medical History Medical History Kidney stones and ureteric stones with obstructive uropathy in the past s/p cystoscopy, ureteroscopy w/ laser lithotripsy and left ureteral stent placement by Urology in 2018 Dementia. Lactic acidosis due to sepsis. Thrombocytopenia. CKD 3 Hypertension. atrial fibrillation. History of transient ischemic attack (TIA). Chronic diastolic congestive heart failure. History of ulcerative colitis. gout Surgical History Cystoscopy, ureteroscopy w/ laser lithotripsy and left ureteral stent placement RIGHT BREAST LUMPECTOMY 1957 EXCISION RIGHT NARES BASAL CELL CARCINOMA 2009 BLEPHAROPLASTY (RIGHT) 10/2010 BILATERAL CATARACT EXTRACTION RADICAL ROBOTIC HYSTERECTOMY FOR ENDOMETRIAL CANCER 09/08/2013 Family History Reviewed and is noncontributory. Social History * Smoker: Denies Alcohol: Denies Drugs: denies A-FIB/CHADSVASC A-FIB History Current/History of A-Fib/PAF?: Yes Current PO Anticoag Therapy: Yes Review of Systems Constitutional: Reports: Fever, Weakness, Fatigue, Lethargy; Denies: Chills, Night Sweats Eyes: Denies: Pain, Vision change ENT: Denies: Head Aches, Ear Pain, Dysphagia Pulmonary: Denies: Dyspnea, Cough Cardiovascular: Denies: Chest Pain, Palpitations, Orthopnea, Paroxysmal Noc. Dyspnea, Lt Headedness Gastrointestinal: Reports: Nausea, Vomiting, Abdominal Pain Genitourinary: Denies: Dysuria, Frequency, Incontinence, Retention Neurological: Reports: Weakness, Confusion Psych: Reports: Memory Issues Physical Examination General Exam: Positive: Cooperative, No Acute Distress, Other (drowsy) Eye Exam: Positive: PERRLA, Conjunctiva & lids normal, EOMI; Negative: Sclera icteric ENT Exam: Positive: Atraumatic, Mucous membr. moist/pink, Pharynx Normal Neck Exam: Positive: Supple; Negative: JVD, thyromegaly Chest Exam: Positive: Clear to auscultation, Normal air movement Heart Exam: Positive: Rate Normal, Regular Rhythm, Normal S1, Normal S2; Negative: Murmurs, Rubs Abdomen Exam: Positive: Normal bowel sounds, Soft, Tenderness (in the left and right lumber region), Other (No rebound or guarding) Extremity Exam: Negative: Clubbing, Cyanosis, Edema Skin Exam: Positive: Nl turgor and temperature; Negative: Breakdown, Lesion Neuro Exam: Positive: Other (No focal deficits. ) Psych Exam: Positive: Other (oriented to person only) Vital Signs Vital Signs Date Time Temp Pulse Resp B/P (MAP) Pulse Ox O2 Delivery O2 Flow Rate FiO2 12/07/19 15:10 78 16 177/86 (116) 98 Room Air 12/07/19 14:26 98.3 Laboratory Data Labs 24H Laboratory Tests 2 12/07/19 09:19: Immature Granulocyte % (Auto) 0.7, Neutrophils (%) (Auto) 89.8H, Lymphocytes (%) (Auto) 4.0L, Monocytes (%) (Auto) 5.3H, Eosinophils (%) (Auto) 0.0, Basophils (%) (Auto) 0.2, Neutrophils # (Auto) 15.6H, Lymphocytes # (Auto) 0.7L, Monocytes # (Auto) 0.9H, Eosinophils # (Auto) 0.0, Basophils # (Auto) 0.0, Nucleated Red Blood Cells % (auto) 0.0, Prothrombin Time 29.3H, Prothromb Time International Ratio 2.79, Urine Color (JACKELYN) LT YELLOW, Urine Appearance (JACKELYN) HAZYH, Urine pH (JACKELYN) 8.5, Urine Specific [place] (JACKELYN) 1.010, Bedside Urine Glucose (UA) NEGATIVE, Bedside Urine Ketones (LAB) NEGATIVE, Bedside Urine Blood POSITIVEH, Bedside Urine Nitrite (LAB) NEGATIVE, Bedside Urine Bilirubin (LAB) NEGATIVE, Bedside Urine Urobilinogen (LAB) NORMAL, Bedside Urine Leukocyte Esterase (L POSITIVEH, Urine Sediment Examination PERFORMED, Urine RBC 30-40H, Urine WBC 20- 30H, Urine Squamous Epithelial Cells SMALL AMOUNT, Urine Transitional Epithelial Cells SMALL AMOUNTH, Urine Amorphous Sediment SMALL AMOUNTH, Urine Bacteria SMALL AMOUNTH, Urine Hyaline Casts NONE SEEN, Blood Gas Bicarbonate Standard 25.3, Venous Blood pH 7.376, Venous Blood Partial Pressure CO2 48.2, Venous Blood Partial Pressure O2 32.4, Venous Blood Total Carbon Dioxide 29.1H, Venous Blood HCO3 27.6H, Venous Blood Oxygen Saturation 58.9L, Venous Blood Base Excess 1.9, Anion Gap 6L, Glomerular Filtration Rate 9.1L, Lactic Acid Level 2.2*H, Calcium Level 12.6H, Total Bilirubin 0.5, Direct Bilirubin 0.2, Aspartate Amino Transf (AST/SGOT) 8, Alanine Aminotransferase (ALT/SGPT) 10L, Alkaline Phosphatase 101, Total Creatine Kinase 39, Creatine Kinase MB < 1.0, Creatine Kinase MB Relative Index 2.56, Troponin I < 0.02, Total Protein 7.0, Albumin 3.0L, Albumin/Globulin Ratio 0.75L, Thyroid Stimulating Hormone (TSH) 0.882 12/07/19 11:20: Influenza Type A (RT-PCR) NEGATIVE, Influenza Type B (RT-PCR) NEGATIVE 12/07/19 13:57: Lactic Acid Followup at 4 Hours 2.1*H CBC/BMP Laboratory Tests 12/07/19 09:19 Microbiology Microbiology 12/07/19 Respiratory Virus Panel (PCR) ([facility]) - Final, Complete 12/07/19 Urine Culture, Received Pending 12/07/19 Blood Culture, Received Pending 12/07/19 Blood Culture, Received Pending Assessment/Plan Acute metabolic encephalopathy with underlying mild dementia due to infection , hypercalcemia management of infection and hypercalcemia Possibly complicated UTI/ Pyelonephritis with sepsis with obstructive uropathy of the left urine culture and blood culture sent. will give ceftriaxone. Lacticacidosis due to infection will follow up Left Sided Ureteral Stone with left hydronephrosis will consult Dr almeida and IR will give Rocephin will keep NPO midnight for percutaneous nephrostomy. ERON on CKD due to obstructive uropathy, infection , poor oral intake , some GI loss. will give IVF. Kahn placement patient's creatinine was normal in 2017 it started rising from november 2018 and was stable in 1.5 to 1.8 range then suddenly jumped up in September since hen has humza going up to sven highest today of 4.8. Hypercalcemia new since Sep 2019 will give IVF. will hold calcitriol HTN Cont amlodipine and carvedilol Normocytic Anemia Hgb stable, will transfuse for Hgb <8 A. fib will hold coumadin as will be going for IR perc nephrostomy INR supratherapeutic will give vit K 1 dose. Hx of Ulcerative Colitis Cont Mesalamine when eating po. Hx of Diastolic CHF hypovolemic will give cautious fluids. DVT prophylaxis TEDS Plan / VTE VTE Prophylaxis Ordered?: Yes VIOLET DIAL MD Dec 07, 2019 15:53
--- NOTE | 2019-12-07 17:26 | CR.PDOC ---
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 She had 2 episodes of vomiting yesterday and this has been getting progressively worse over the last 2 days so she was brought into the emergency room. In the ER a CT scan of the abdomen and pelvis was done and this showed left hydroureteronephrosis with 2-3 mid ureteral stones with significant perinephric and peripelvic stranding. She was also found to be in acute renal failure and prior to September 2018 had fairly normal renal function. Her BUN/creatinine stay were 42 over 4.8. In July of last year she was 1.9 and has been slowly creeping up from there and in November was as high as 3.8. A urinalysis did show 20-30 white blood cells and 30-40 red blood cells. Her white blood count is up to 17.4. She does have a history of a 12 mm left proximal ureteral stone which was operated on 05/02/18 and then admission afterwards for an elevated white blood count. It does not look like there was any further follow-up in the clinic though after that. In 2018 at the time she was having Klebsiella infections but I do not see any further urine cultures after that. She is very drowsy at the bedside now and is really not able to answer a full review of systems. Home Medications Scheduled Acetaminophen (Tylenol Arthritis) 650 Mg Tablet.er, 650 MG PO DAILY, (Reported) Amlodipine Besylate (Amlodipine Besylate) 5 Mg Tab, 5 MG PO DAILY, (Reported) Calcitriol (Rocaltrol) 0.5 Mcg Capsule, 0.5 MCG PO DAILY, (Reported) Carvedilol (Carvedilol) 12.5 Mg Tab, 6.25 MG PO BID, (Reported) Cyclosporine (Restasis) 0.05 % Emu, 1 DROP OU BID, (Reported) Mesalamine (Pentasa) 500 Mg Capsule.er, 500 MG PO BID, (Reported) 2ND DOSE QPM Warfarin Sodium (Warfarin Sodium) 2.5 Mg Tablet, 1.25 MG PO QPM, (Reported) Scheduled PRN Diclofenac Sodium (Diclofenac Sodium) 3% 100GM Gel..gram., 1 APLCT TOP Q6H PRN for PAIN, (Reported) Diphenhydramine HCl (Diphenhydramine HCl) 25 Mg Capsule, 25 MG PO QHS PRN for INSOMNIA, (Reported) Polyethylene Glycol 3350 (Miralax) 1 Pow Pow, 17 GRAM PO DAILY PRN for CONSTIPATION, (Reported) Propylene Glycol/Peg 400 (Systane 0.3-0.4% Eye Drops) 15 Ml Bela, 1 DROP OU BID PRN for DRY EYES, (Reported) Tramadol HCl (Tramadol HCl) 50 Mg Tab, 50 MG PO Q4H PRN for PAIN, (Reported) Allergies Coded Allergies: No Known Allergies (Unverified , 02/12/13) Past Medical History Past Medical History Medical History Kidney stones and ureteric stones with obstructive uropathy in the past s/p cystoscopy, ureteroscopy w/ laser lithotripsy and left ureteral stent placement by Urology in 2018 Dementia. Lactic acidosis due to sepsis. Thrombocytopenia. CKD 3 to 4 Hypertension. atrial fibrillation. History of transient ischemic attack (TIA). Chronic diastolic congestive heart failure. History of ulcerative colitis. gout Surgical History Cystoscopy, ureteroscopy w/ laser lithotripsy and left ureteral stent placement 04/2018 RIGHT BREAST LUMPECTOMY 1957 EXCISION RIGHT NARES BASAL CELL CARCINOMA 2009 BLEPHAROPLASTY (RIGHT) 10/2010 BILATERAL CATARACT EXTRACTION -04/2010 RADICAL ROBOTIC HYSTERECTOMY FOR ENDOMETRIAL CANCER 09/08/2013 Family History Reviewed and is noncontributory. Social History Smoker: Denies Alcohol: Denies Drugs: denies A-FIB/CHADSVASC SCREEN A-FIB/CHADSVASC A-FIB History Current/History of A-Fib/PAF?: Yes Current PO Anticoag Therapy: Yes Review of Systems Review of Systems Difficult to obtain since the patient is so drowsy at this time PHYSICAL EXAMINATION: VITAL SIGNS: Please see below. GENERAL APPEARANCE: Well-developed well-nourished female but quite drowsy HEENT: Normocephalic atraumatic in her eyes are PERRLA RESPIRATORY: Clear to auscultation and percussion and not using accessory muscles to breathe CARDIOVASCULAR: Regular rate and rhythm now ABDOMEN: Soft. Nt. ND EXTREMITIES: No cyanosis, clubbing or edema. LABORATORY DATA: Please see below. ASSESSMENT/PLAN: -The patient has left obstructive uropathy with septicemia and we will plan on h aving a left nephrostomy tube to be placed as soon as possible. This was discussed with Dr. Recio. -Continue medical management at this point with antibiotic therapy Vital Signs/I&O Vital Signs Date Time Temp Pulse Resp B/P (MAP) Pulse Ox O2 Delivery O2 Flow Rate FiO2 12/07/19 15:10 78 16 177/86 (116) 98 Room Air 12/07/19 14:26 98.3 Laboratory Data Labs 24H Laboratory Tests 2 12/07/19 09:19: Immature Granulocyte % (Auto) 0.7, Neutrophils (%) (Auto) 89.8H, Lymphocytes (%) (Auto) 4.0L, Monocytes (%) (Auto) 5.3H, Eosinophils (%) (Auto) 0.0, Basophils (%) (Auto) 0.2, Neutrophils # (Auto) 15.6H, Lymphocytes # (Auto) 0.7L, Monocytes # (Auto) 0.9H, Eosinophils # (Auto) 0.0, Basophils # (Auto) 0.0, Nucleated Red Blood Cells % (auto) 0.0, Prothrombin Time 29.3H, Prothromb Time International Ratio 2.79, Urine Color (JACKELYN) LT YELLOW, Urine Appearance (JACKELYN) HAZYH, Urine pH (JACKELYN) 8.5, Urine Specific [place] (JACKELYN) 1.010, Bedside Urine Glucose (UA) NEGATIVE, Bedside Urine Ketones (LAB) NEGATIVE, Bedside Urine Blood POSITIVEH, Bedside Urine Nitrite (LAB) NEGATIVE, Bedside Urine Bilirubin (LAB) NEGATIVE, Bedside Urine Urobilinogen (LAB) NORMAL, Bedside Urine Leukocyte Esterase (L POSITIVEH, Urine Sediment Examination PERFORMED, Urine RBC 30-40H, Urine WBC 20- 30H, Urine Squamous Epithelial Cells SMALL AMOUNT, Urine Transitional Epithelial Cells SMALL AMOUNTH, Urine Amorphous Sediment SMALL AMOUNTH, Urine Bacteria SMALL AMOUNTH, Urine Hyaline Casts NONE SEEN, Blood Gas Bicarbonate Standard 25.3, Venous Blood pH 7.376, Venous Blood Partial Pressure CO2 48.2, Venous Blood Partial Pressure O2 32.4, Venous Blood Total Carbon Dioxide 29.1H, Venous Blood HCO3 27.6H, Venous Blood Oxygen Saturation 58.9L, Venous Blood Base Excess 1.9, Anion Gap 6L, Glomerular Filtration Rate 9.1L, Lactic Acid Level 2.2*H, Calcium Level 12.6H, Total Bilirubin 0.5, Direct Bilirubin 0.2, Aspartate Amino Transf (AST/SGOT) 8, Alanine Aminotransferase (ALT/SGPT) 10L, Alkaline Phosphatase 101, Total Creatine Kinase 39, Creatine Kinase MB < 1.0, Creatine Kinase MB Relative Index 2.56, Troponin I < 0.02, Total Protein 7.0, Albumin 3.0L, Albumin/Globulin Ratio 0.75L, Thyroid Stimulating Hormone (TSH) 0.882 12/07/19 11:20: Influenza Type A (RT-PCR) NEGATIVE, Influenza Type B (RT-PCR) NEGATIVE 12/07/19 13:57: Lactic Acid Followup at 4 Hours 2.1*H CBC/BMP Laboratory Tests 12/07/19 09:19 Microbiology Microbiology 12/07/19 Respiratory Virus Panel (PCR) ([facility]) - Final, Complete 12/07/19 Urine Culture, Received Pending 12/07/19 Blood Culture, Received Pending 12/07/19 Blood Culture, Received Pending Allergies Coded Allergies: No Known Allergies (Unverified , 02/12/13) Home Medications Scheduled Acetaminophen (Tylenol Arthritis) 650 Mg Tablet.er, 650 MG PO DAILY, (Reported) Amlodipine Besylate (Amlodipine Besylate) 5 Mg Tab, 5 MG PO DAILY, (Reported) Calcitriol (Rocaltrol) 0.5 Mcg Capsule, 0.5 MCG PO DAILY, (Reported) Carvedilol (Carvedilol) 12.5 Mg Tab, 6.25 MG PO BID, (Reported) Cyclosporine (Restasis) 0.05 % Emu, 1 DROP OU BID, (Reported) Mesalamine (Pentasa) 500 Mg Capsule.er, 500 MG PO BID, (Reported) 2ND DOSE QPM Warfarin Sodium (Warfarin Sodium) 2.5 Mg Tablet, 1.25 MG PO QPM, (Reported) Scheduled PRN Diclofenac Sodium (Diclofenac Sodium) 3% 100GM Gel..gram., 1 APLCT TOP Q6H PRN for PAIN, (Reported) Diphenhydramine HCl (Diphenhydramine HCl) 25 Mg Capsule, 25 MG PO QHS PRN for INSOMNIA, (Reported) Polyethylene Glycol 3350 (Miralax) 1 Pow Pow, 17 GRAM PO DAILY PRN for CONSTIPATION, (Reported) Propylene Glycol/Peg 400 (Systane 0.3-0.4% Eye Drops) 15 Ml Bela, 1 DROP OU BID PRN for DRY EYES, (Reported) Tramadol HCl (Tramadol HCl) 50 Mg Tab, 50 MG PO Q4H PRN for PAIN, (Reported) LAYA FOWLER MD Dec 07, 2019 17:26
[2019-12-07 18:01] LABS: INR 3.34; PARTIAL THROMBOPLASTIN TIME 47.2 SECONDS (25.0-38.4); PROTHROMBIN TIME 33.8 SECONDS (11.8-14.0)
[2019-12-07 18:07] VITALS: BP 146/78
[2019-12-07] MEDS: NS 1,000 ML IV SCH (18:22)
[2019-12-07] MEDS ORDERED: PHYTONADIONE 5 MG TAB PO ONE (18:45)
[2019-12-07 19:36] VITALS: BP 153/72
[2019-12-07] MEDS: CARVedilol 12.5 MG TAB PO SCH (20:28)
[2019-12-07] MEDS: MORPHINE 2 MG/ML 1ML VIAL (J2270) IV PRN (22:07)
[2019-12-07] MEDS ORDERED: VANCOMYCIN HCL 750 MG, VIAL MATE ADAPTER 1 EACH in D5W 250 ML IV SCH (23:15)
[2019-12-07] MEDS ORDERED: VANCOMYCIN HCL 1,000 MG, VIAL MATE ADAPTER 1 EACH in D5W 250 ML IV ONE (23:45)
[2019-12-07] MEDS ORDERED: VANCOMYCIN INTERMITTENT/PULSE DOSING BY CLINICAL PHARMACIST PER DOSING PROTOCOL XX SCH (23:45)
--- NOTE | 2019-12-08 00:02 | PHACANCOPD ---
PHARMACY VANCOMYCIN DOSING Pt Demographics Demographics Patient Age:84 , Weight:80.000 , Gender: female Adjusted Body Weight Date: 12/08/19, Adjusted Body Weight: Kg Events Past 24 Hours Events Past 24 Hours: NO: Dialysis, Diuretic Therapy, Change in CrCl, Fever, Elevation in WBC, Pending Diagnostics, Pending Procedures, Other Vancomycin Vancomycin Target Ranges: 15-20 mcg/ml Vancomycin Load Y/N: Yes Load Dose Date Time Vancomycin Load Dose: 1500mg Date: 11-20 Time: 0000 Vancomycin Dose Date: 12/08/19. Current Vancomycin Dose: [int] Intermittent Dosing?: Yes Labs Labs Item Value Date Time White Blood Count 17.4 10^3/uL H 12/07/19918 Glomerular Filtration Rate 9.1 L 12/07/19918 Creatinine 4.81 MG/DL H 12/07/19918 Blood Urea Nitrogen 42 MG/DL H 12/07/19918 Vital Signs Label Value Date Time Patient Temperature 98.3 degrees F 12/07/191935 Temperature Source Oral 12/07/191935 Micro Microbiology 12/07/19 Respiratory Virus Panel (PCR) ([facility]) - Final, Complete 12/07/19 Urine Culture, Received Pending 12/07/19 Blood Culture, Received Pending 12/07/19 Blood Culture, Received Pending Creatinine Clearance Date:12/08/19. Creatinine Clearance: [~8]. Pending Labs Random - in am Assessment and Plan Maintaining Current Dose?: Yes Reason for dose change: No Dose Change Pharmacist Note Pharmacist Note Date: 12/08/19. Pharmacist note:Will monitor and dose as needed. DOLORES MARS [facility] Dec 08, 2019 00:02
[2019-12-08] MEDS ORDERED: VANCOMYCIN HCL 500 MG in D5W MINI-BAG PLUS 100 ML IV ONE (01:00)
[2019-12-08 04:51] VITALS: BP 154/73
[2019-12-08 06:26] LABS: BASO % 0.1 % (0.0-1.0); HEMATOCRIT 31.5 % (36.0-47.0); HEMOGLOBIN 10.2 g/dl (12.0-15.5); LYMPH # 0.8 10^3/uL (1.5-5.0); LYMPH % 5.9 % (24.0-44.0); MEAN CORPUSCULAR HEMOGLOBIN 30.8 pg (27.0-33.0); MEAN CORPUSCULAR HGB CONC 32.4 g/dl (32.0-36.5); MEAN CORPUSCULAR VOLUME 95.2 fl (80.0-96.0); MONO # 0.7 10^3/uL (0.0-0.8); MONO % 4.9 % (0.0-5.0); NEUTROPHILS # 11.9 10^3/uL (1.5-8.5); NEUTROPHILS % 88.3 % (36.0-66.0); PLATELET COUNT, AUTOMATED 196 10^3/uL (150-450); RED BLOOD COUNT 3.31 10^6/uL (4.00-5.40); WHITE BLOOD COUNT 13.5 10^3/uL (4.0-10.0)
[2019-12-08 06:37] LABS: INR 2.33; PROTHROMBIN TIME 25.4 SECONDS (11.8-14.0)
[2019-12-08 06:38] LABS: INR 2.37; PARTIAL THROMBOPLASTIN TIME 46.6 SECONDS (25.0-38.4); PROTHROMBIN TIME 25.7 SECONDS (11.8-14.0)
[2019-12-08] MEDS ORDERED: PHYTONADIONE 10MG/ML INJECTION (J3430) SC ONE (07:00)
[2019-12-08 07:04] LABS: CALCIUM LEVEL 12.1 MG/DL (8.8-10.2); CREATININE FOR GFR 4.72 MG/DL (0.55-1.30); GLOMERULAR FILTRATION RATE 9.3 (>32); POTASSIUM SERUM 3.6 MEQ/L (3.5-5.1)
[2019-12-08] MEDS: NS 1,000 ML IV SCH ×2 (07:14→14:48)
--- NOTE | 2019-12-08 08:26 | IPNPDOC ---
Text Note Date of Service The patient was seen on 12/08/19. NOTE Patient has been stable overnight and is afebrile. Her white blood count after being given antibiotics came down from 17.4-13.5. Her INR was still slightly high this morning at 2.33 so she was given vitamin K in anticipation of having a nephrostomy tube placed this morning. Physical examination: Patient is still confused and very sleepy. She has no definitive CVA tenderness in her abdomen seems fairly soft. Her extremities show no cyanosis clubbing or edema. Impression: -Urosepsis with 2-3 obstructing left ureteral stones, urinalysis showing 20-30 white blood cells per high-power field, and admitted with confusion and increased white blood count -Acute renal insufficiency with a BUN and creatinine are 52 over 4.72 Plan: -Continue medical management -Placement of left nephrostomy tube today by Dr. Recio and urine should be sent from the renal pelvis for microscopic urinalysis and culture and sensitivity when the tube is placed -Await final urine and blood cultures VS,Laure, I+O VS, Laure, I+O Laboratory Tests 12/07/19 09:19 12/08/19 05:58 Vital Signs Date Time Temp Pulse Resp B/P (MAP) Pulse Ox O2 Delivery O2 Flow Rate FiO2 12/08/19 04:51 98.2 81 20 154/73 (100) 92 Room Air I&O- Last 24 Hours up to 6 AM 12/08/19 06:00 Intake Total 1920 ml Balance 1920 ml LAYA FOWLER MD Dec 08, 2019 08:26
[2019-12-08] MEDS: amLODIPine 5 MG TAB PO SCH ×2 (09:00→09:41)
[2019-12-08] MEDS: CARVedilol 12.5 MG TAB PO SCH ×3 (09:00→22:20)
[2019-12-08 09:08] VITALS: BP 163/75
[2019-12-08] MEDS ORDERED: PHYTONADIONE INJection 5 MG in NS 50 ML IV ONE (10:00)
[2019-12-08] MEDS ORDERED: cefTRIAXone SOD 1 GM in D5W MINI-BAG PLUS 50 ML IV SCH (11:00)
[2019-12-08] MEDS: cefTRIAXone SOD 2 GM in D5W MINI-BAG PLUS 50 ML IV SCH (11:38)
[2019-12-08] MEDS: MORPHINE 2 MG/ML 1ML VIAL (J2270) IV PRN (11:39)
[2019-12-08 12:13] LABS: INR 1.96; PROTHROMBIN TIME 22.1 SECONDS (11.8-14.0)
[2019-12-08 14:00] VITALS: BP 156/71
[2019-12-08] MEDS ORDERED: diphenhydrAMINE INJ 50MG/ML VIAL (J1200) As Ordered ONE (14:34)
[2019-12-08] MEDS ORDERED: ISOVUE-300 61% 50ML VIAL (Q9967) As Ordered ONE (14:35)
[2019-12-08] MEDS ORDERED: MIDAZOLAM INJ 2 MG/2 ML VIAL (J2250) As Ordered ONE (14:35)
[2019-12-08] MEDS ORDERED: LIDOCAINE 1% MDV 20ML VIAL As Ordered ONE (14:35)
[2019-12-08] MEDS ORDERED: fentaNYL 100 MCG/2 ML INJECTION (J3010) As Ordered ONE (14:35)
--- NOTE | 2019-12-08 14:41 | IPNPDOC ---
Subjective Date Seen The patient was seen on 12/08/19. Subjective Chief Complaint/HPI Not feeling good , could not tell anything more, somnolent. Says feels thirsty. No fever or chills. Seems like has some abdominal pain as winces on exam. Objective Physical Examination General Exam: Positive: Cooperative, No Acute Distress, Other (drowsy) Eye Exam: Positive: PERRLA, Conjunctiva & lids normal, EOMI; Negative: Sclera icteric ENT Exam: Positive: Atraumatic, Mucous membr. moist/pink, Pharynx Normal Neck Exam: Positive: Supple; Negative: JVD, thyromegaly Chest Exam: Positive: Clear to auscultation, Normal air movement Heart Exam: Positive: Rate Normal, Regular Rhythm, Normal S1, Normal S2; Negative: Murmurs, Rubs Abdomen Exam: Positive: Normal bowel sounds, Soft, Tenderness (in the left and right lumber region), Other (No rebound or guarding) Extremity Exam: Negative: Clubbing, Cyanosis, Edema Skin Exam: Positive: Nl turgor and temperature; Negative: Breakdown, Lesion Neuro Exam: Positive: Other (No focal deficits. ) Psych Exam: Positive: Other (oriented to person only) Assessment /Plan Assessment Complicated UTI/ Pyelonephritis with sepsis with obstructive uropathy of the left urine culture and blood culture sent. On ceftriaxone. Will go for IR perc nephrostomy today. Gram negative bacterimia from pyelonephritis. 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 On Rocephin NPO for percutaneous nephrostomy. ERON on CKD due to obstructive uropathy, infection , poor oral intake , some GI loss. Continue IVF patient's creatinine was normal in 2018 it started rising from november 2018 and was stable in 1.5 to 1.8 range then suddenly jumped up in September since hen has humza going up to sven highest today of 4.8. Hypercalcemia new since Sep 2019 will give IVF. will hold calcitriol HTN Cont amlodipine and carvedilol Normocytic Anemia Hgb stable, will transfuse for Hgb <8 A. fib will hold coumadin as will be going for IR perc nephrostomy INR supratherapeutic , given Vit k total 15 mg. Hx of Ulcerative Colitis Cont Mesalamine when eating po. Hx of Diastolic CHF hypovolemic will give cautious fluids. DVT prophylaxis TEDS Plan/VTE VTE Prophylaxis Ordered?: Yes VS, I&O, 24H, Fishbone Vital Signs/I&O Vital Signs Date Time Temp Pulse Resp B/P (MAP) Pulse Ox O2 Delivery O2 Flow Rate FiO2 12/08/19 11:49 18 Room Air 12/08/19 09:41 75 163/75 12/08/19 04:51 98.2 92 I&O- Last 24 Hours up to 6 AM 12/08/19 06:00 Intake Total 1920 ml Balance 1920 ml Laboratory Data 24H LABS Laboratory Tests 2 12/07/19 17:39: Prothrombin Time 33.8H, Prothromb Time International Ratio 3.34, Activated Partial Thromboplast Time 47.2H 12/08/19 05:58: Prothrombin Time 25.7H, Prothromb Time International Ratio 2.37, Activated Partial Thromboplast Time 46.6H, Immature Granulocyte % (Auto) 0.8, Neutrophils (%) (Auto) 88.3H, Lymphocytes (%) (Auto) 5.9L, Monocytes (%) (Auto) 4.9, Eosinophils (%) (Auto) 0.0, Basophils (%) (Auto) 0.1, Neutrophils # (Auto) 11 .9H, Lymphocytes # (Auto) 0.8L, Monocytes # (Auto) 0.7, Eosinophils # (Auto) 0.0, Basophils # (Auto) 0.0, Nucleated Red Blood Cells % (auto) 0.0, Anion Gap 6L, Glomerular Filtration Rate 9.3L, Calcium Level 12.1H 12/08/19 11:51: Prothrombin Time 22.1H, Prothromb Time International Ratio 1.96 CBC/BMP Laboratory Tests 12/08/19 05:58 Microbiology Microbiology 12/07/19 Respiratory Virus Panel (PCR) ([facility]) - Final, Complete 12/07/19 Urine Culture, Received Pending 12/07/19 Blood Culture - Preliminary, Resulted 12/07/19 Blood Culture - Preliminary, Resulted VIOLET DIAL MD Dec 08, 2019 14:41
[2019-12-08] MEDS ORDERED: ceFAZolin 1GM INJ (J0690 PER 500MG) As Ordered ONE (15:09)
--- NOTE | 2019-12-08 16:11 | IRMSE ---
[facility] IR Moderate Sedation Eval. Date and Time Date: Dec 08, 2019 Time: 14:42 ASA Classification ASA Classification: III-Severe systemic dis. Mallampati Score: II NPO: Yes Obstructive Sleep Apnea: No Interval Plan: moderate sedation DARIAN HERNANDEZ MD Dec 08, 2019 16:11
--- NOTE | 2019-12-08 16:12 | POST-OPPD ---
Postoperative Procedure Note Date Of Procedure: Dec 08, 2019 Time Of Procedure: 16:11 PREOPERATIVE DIAGNOSIS: left ureteral stones. infection POSTOPERATIVE DIAGNOSIS: same FINDINGS: left ureteral obstruction PROCEDURE: left nephroureteral catheter placement. SURGEON: hang ANESTHESIA: mod sed SPECIMENS: sent ESTIMATED BLOOD LOSS: < 5 ml COMPLICATIONS: none POSTOPERATIVE CONDITION: stable DARIAN HERNANDEZ MD Dec 08, 2019 16:12
[2019-12-08 17:48] VITALS: BP 146/69
[2019-12-08 22:00] VITALS: BP 136/60
[2019-12-08] MEDS ORDERED: ONDANSETRON 4MG/2ML VIAL (J2405) IV PRN (23:00)
[2019-12-09 02:00] VITALS: BP 114/51
--- NOTE | 2019-12-09 05:52 | ECGEPIP ---
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
[2019-12-09 06:00] VITALS: BP 167/83
[2019-12-09 06:33] LABS: BASO % 0.1 % (0.0-1.0); HEMATOCRIT 28.4 % (36.0-47.0); HEMOGLOBIN 9.1 g/dl (12.0-15.5); LYMPH # 0.6 10^3/uL (1.5-5.0); LYMPH % 6.5 % (24.0-44.0); MEAN CORPUSCULAR HEMOGLOBIN 30.4 pg (27.0-33.0); MONO # 0.5 10^3/uL (0.0-0.8); MONO % 5.3 % (0.0-5.0); NEUTROPHILS # 7.6 10^3/uL (1.5-8.5); NEUTROPHILS % 87.1 % (36.0-66.0); PLATELET COUNT, AUTOMATED 159 10^3/uL (150-450); RED BLOOD COUNT 2.99 10^6/uL (4.00-5.40); WHITE BLOOD COUNT 8.7 10^3/uL (4.0-10.0)
[2019-12-09 06:39] LABS: INR 1.54; PROTHROMBIN TIME 18.2 SECONDS (11.8-14.0)
[2019-12-09] MEDS: NS 1,000 ML IV SCH (07:01)
[2019-12-09 07:02] LABS: CALCIUM LEVEL 10.7 MG/DL (8.8-10.2); CREATININE FOR GFR 3.88 MG/DL (0.55-1.30); GLOMERULAR FILTRATION RATE 11.7 (>32); VANCOMYCIN RANDOM 16.3 UG/ML
--- NOTE | 2019-12-09 08:18 | IPNPDOC ---
Text Note Date of Service The patient was seen on 12/09/19. NOTE Patient has been stable overnight and is afebrile. The left percutaneous neph rostomy tube is in place and draining clear yellow urine. Her white blood count has come down to 8.7. Her creatinine came down to 3.88 from a high of 4.81. She is a little more alert and oriented today to person and place but still quite drowsy. Her urine cultures and blood cultures both came back with Proteus Physical examination: Patient is still very drowsy. She has no definitive CVA tenderness in her abdomen seems fairly soft. Her extremities show no cyanosis clubbing or edema. The nephrostomy tube is draining clear yellow urine Impression: -Urosepsis with Proteus with 2-3 obstructing left ureteral stones now with a left nephrostomy tube draining well and her white blood count has decreased and she has remained afebrile -Acute renal insufficiency/failure with a rising creatinine since November 2018 but much worse since September Plan: -Continue medical management and her urine and blood cultures are sensitive to Ceftriaxone so this should be continued for a total of 10-14 days and then an antegrade nephrostogram should be done to see whether the stones have possibly passed and if not she should be scheduled for ureteroscopic stone manipulation and a proximally 2 weeks if she is stable Please call urology back if we can be of any further assistance Laure PALACIOS, I+O Laure PALACIOS I+O Laboratory Tests 12/09/19 06:17 Vital Signs Date Time Temp Pulse Resp B/P (MAP) Pulse Ox O2 Delivery O2 Flow Rate FiO2 12/09/19 06:00 97.8 50 18 167/83 (111) 97 Room Air 12/08/19 16:45 2 I&O- Last 24 Hours up to 6 AM 12/09/19 06:00 Intake Total 1300 ml Output Total 1000 ml Balance 300 ml LAYA FOWLER MD Dec 09, 2019 08:18
[2019-12-09] MEDS: KCL 40MEQ IN D5/0.45NS 1000ML 1,000 ML IV SCH ×2 (08:42→23:16)
[2019-12-09] MEDS: CARVedilol 12.5 MG TAB PO SCH ×2 (08:43→20:27)
[2019-12-09] MEDS: HEPARIN SOD (PORCINE) 5000 UNITS/ML VIAL (J1644 PER 1000UNITS) SQ SCH ×2 (08:43→20:24)
[2019-12-09] MEDS: amLODIPine 5 MG TAB PO SCH (08:43)
--- NOTE | 2019-12-09 09:57 | REP ---
IR Percutaneous nephro ureteral stent catheter placement using fluoroscopy and ultrasound guidance. IR nephrostogram and ureterogram. IR moderate sedation. Ultrasound of the left kidney. Clinical information: Left ureteral obstruction. Ureteral stones. Physician: Dr Recio. Procedure: The patient was advised of the benefits, risks and alternatives of the procedure and informed consent was obtained. The time-out was performed with verification of the patient's name, MRN, site of procedure and type of procedure to be performed. The patient was positioned in the prone position on the angiographic table. The site was prepped and draped in the usual sterile fashion. Moderate sedation was performed by the physician including the presence of an independent trained observer who assisted in monitoring the patient's level of consciousness and physiologic status. Following the administration of fentanyl and Versed, the physician spent 45 minutes of face to face time with the patient. A dynamo tender radiograph reveals no gross abnormality. The anticipated puncture site on the flank was anesthetized with lidocaine. Using ultrasound guidance, a lower pole calyx was accessed with a 21 gauge Chiba needle. A nephrostogram and ureterogram was performed demonstrating hydronephrosis and ureteral obstruction. An 018 wire was then advanced into the collecting system. The needle was then exchanged for a non vascular introducer set. A glide wire in conjunction with a glide cath was used to recanalize the [place] ureter down to the bladder using fluoro guidance. Contrast injection confirms location in the collecting system and bladder. The glidewire was exchanged for an Amplatz wire which was advanced under fluoroscopy guidance through the catheter into the bladder. The sheath and catheter were removed. An 8.5 Egyptian nephro ureteral stent catheter was then advanced under fluoroscopy guidance, over the wire into the bladder. The distal pigtail was formed and locked in position. A final nephrostogram ureterogram was performed confirming position of the pigtail in the bladder. The catheter was sutured in position with 2-0 Prolene and a sterile dressing was applied. The patient tolerated the procedure well and was returned to the PRU in stable condition. EBL: < 5 ml. Complications: None. Conclusion: 1. Nephrostogram and ureterogram demonstrate hydronephrosis and ureteral obstruction. 2. Successful left sided nephro ureteral stent catheter placement. Patient to follow up in IR in 2 weeks for internalization. Thank you for this referral. Electronically Signed by Sallie Recio MD 12/09/2019 09:55 A
[2019-12-09] MEDS: cefTRIAXone SOD 2 GM in D5W MINI-BAG PLUS 50 ML IV SCH (11:08)
--- NOTE | 2019-12-09 11:30 | IPNPDOC ---
Subjective Date Seen The patient was seen on 12/09/19. Subjective Chief Complaint/HPI Says very sick. Not any better than yesterday. But seem little more awake this am. Nephrostomy tube draining well. good urine output in the connors cath also. Objective Physical Examination General Exam: Positive: Cooperative, No Acute Distress, Other (drowsy) Eye Exam: Positive: PERRLA, Conjunctiva & lids normal, EOMI; Negative: Sclera icteric ENT Exam: Positive: Atraumatic, Mucous membr. moist/pink, Pharynx Normal Neck Exam: Positive: Supple; Negative: JVD, thyromegaly Chest Exam: Positive: Clear to auscultation, Normal air movement Heart Exam: Positive: Rate Normal, Regular Rhythm, Normal S1, Normal S2; Negative: Murmurs, Rubs Abdomen Exam: Positive: Normal bowel sounds, Soft, Tenderness (in the left and right lumber region), Other (No rebound or guarding) Extremity Exam: Negative: Clubbing, Cyanosis, Edema Skin Exam: Positive: Nl turgor and temperature; Negative: Breakdown, Lesion Neuro Exam: Positive: Other (No focal deficits. ) Psych Exam: Positive: Other (oriented to person only) Assessment /Plan Assessment Complicated UTI/ Pyelonephritis with sepsis with obstructive uropathy of the left urine culture and blood culture Proteus. On ceftriaxone. S/p perc nephroterouretric drain on 12/08 Gram negative bacterimia Proteus in blood and urine cultures. from pyelonephritis. 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 ERON on CKD due to obstructive uropathy, infection , poor oral intake , some GI loss. Continue IVF patient's creatinine was normal in 2018 it started rising from november 2018 and was stable in 1.5 to 1.8 range then suddenly jumped up in September since hen has humza going up to sven highest today of 4.8. Hypercalcemia new since Sep 2019 will give IVF. will hold calcitriol HTN Cont amlodipine and carvedilol Normocytic Anemia Hgb stable, will transfuse for Hgb <8 A. fib will hold coumadin as will be going for IR perc nephrostomy INR supratherapeutic , given Vit k total 15 mg. Hx of Ulcerative Colitis Cont Mesalamine when eating po. Hx of Diastolic CHF hypovolemic will give cautious fluids. DVT prophylaxis TEDS Plan/VTE VTE Prophylaxis Ordered?: Yes VS, I&O, 24H, Fishbone Vital Signs/I&O Vital Signs Date Time Temp Pulse Resp B/P (MAP) Pulse Ox O2 Delivery O2 Flow Rate FiO2 12/09/19 02:00 97.2 92 18 114/51 (72) 92 Room Air 12/08/19 16:45 2 I&O- Last 24 Hours up to 6 AM 12/09/19 06:00 Intake Total 1300 ml Output Total 1000 ml Balance 300 ml Laboratory Data 24H LABS Laboratory Tests 2 12/08/19 05:58: Immature Granulocyte % (Auto) 0.8, Neutrophils (%) (Auto) 88.3H, Lymphocytes (%) (Auto) 5.9L, Monocytes (%) (Auto) 4.9, Eosinophils (%) (Auto) 0.0, Basophils (%) (Auto) 0.1, Neutrophils # (Auto) 11.9H, Lymphocytes # (Auto) 0.8L, Monocytes # (Auto) 0.7, Eosinophils # (Auto) 0.0, Basophils # (Auto) 0.0, Nucleated Red Blood Cells % (auto) 0.0, Prothrombin Time 25.7H, Prothromb Time International Ratio 2.37, Activated Partial Thromboplast Time 46.6H, Anion Gap 6L, Glomerular Filtration Rate 9.3L, Calcium Level 12.1H 12/08/19 11:51: Prothrombin Time 22.1H, Prothromb Time International Ratio 1.96 CBC/BMP Laboratory Tests 12/08/19 05:58 Microbiology Microbiology 12/08/19 Gram Stain, Received Pending 12/08/19 Body Fluid Culture, Received Pending 12/08/19 Anaerobic Culture, Received Pending 12/07/19 Respiratory Virus Panel (PCR) ([facility]) - Final, Complete 12/07/19 Urine Culture, Received Pending 12/07/19 Blood Culture - Preliminary, Resulted 12/07/19 Blood Culture - Preliminary, Resulted VIOLET DIAL MD Dec 09, 2019 05:05
[2019-12-09 13:32] VITALS: BP 151/64
[2019-12-09] MEDS: MORPHINE 2 MG/ML 1ML VIAL (J2270) IV PRN ×2 (16:01→20:23)
[2019-12-10 06:00] VITALS: BP 135/81
[2019-12-10 06:17] LABS: BASO % 0.1 % (0.0-1.0); EOS # 0.1 10^3/uL (0.0-0.5); EOS % 0.6 % (0.0-3.0); HEMATOCRIT 27.8 % (36.0-47.0); HEMOGLOBIN 9.2 g/dl (12.0-15.5); LYMPH # 0.7 10^3/uL (1.5-5.0); MEAN CORPUSCULAR HEMOGLOBIN 30.4 pg (27.0-33.0); MEAN CORPUSCULAR HGB CONC 33.1 g/dl (32.0-36.5); MEAN CORPUSCULAR VOLUME 91.7 fl (80.0-96.0); MONO # 0.6 10^3/uL (0.0-0.8); NEUTROPHILS # 6.8 10^3/uL (1.5-8.5); NEUTROPHILS % 82.7 % (36.0-66.0); PLATELET COUNT, AUTOMATED 151 10^3/uL (150-450); RED BLOOD COUNT 3.03 10^6/uL (4.00-5.40); WHITE BLOOD COUNT 8.2 10^3/uL (4.0-10.0)
[2019-12-10 06:35] LABS: INR 1.34; PROTHROMBIN TIME 16.3 SECONDS (11.8-14.0)
[2019-12-10 06:51] LABS: CALCIUM LEVEL 10.1 MG/DL (8.8-10.2); CREATININE FOR GFR 2.8 MG/DL (0.55-1.30); GLOMERULAR FILTRATION RATE 17.1 (>32); POTASSIUM SERUM 2.9 MEQ/L (3.5-5.1)
[2019-12-10] MEDS ORDERED: POTASSIUM CHLORIDE 10 MEQ SR TABLET PO ONE (07:45)
--- NOTE | 2019-12-10 08:14 | IPNPDOC ---
Text Note Date of Service The patient was seen on 12/10/19. NOTE Patient has been stable overnight and is afebrile. The left percutaneous neph rostomy tube is in place and draining clear yellow urine. Her white blood count has come down to 8.2. Her creatinine came down to 2.9 from a high of 4.81. She actually is much more awake this morning and knows that she is in the hospital. It looks like she is slowly improving. Physical examination: Patient is more alert and oriented. She has no CVA tenderness. Her abdomen is soft. Her extremities show no cyanosis clubbing or edema. The nephrostomy tube is draining clear yellow urine Impression: -Urosepsis with Proteus with 2-3 obstructing left ureteral stones now with a left nephrostomy tube draining well and her white blood count has decreased and she has remained afebrile -Acute renal insufficiency/failure with a rising creatinine since November 2018 but much worse since September now slowly improving -Baseline dementia but much worse over the last 2 weeks but now also slowly improving Plan: -Continue medical management and her urine and blood cultures are sensitive to Ceftriaxone so this should be continued for a total of 10-14 days and then an antegrade nephrostogram should be done to see whether the stones have possibly passed and if not she should be scheduled for ureteroscopic stone manipulation and a proximally 2 weeks if she is stable Please call urologist on-call after 5 PM today since I will no longer be on service if there are any further questions. My office is aware of the antegrade nephrostogram and this has been ordered for 10 days from now. VS,Fishbone, I+O VS, Fishbone, I+O Laboratory Tests 12/10/19 05:48 Vital Signs Date Time Temp Pulse Resp B/P (MAP) Pulse Ox O2 Delivery O2 Flow Rate FiO2 12/10/19 06:00 98.0 70 16 135/81 (99) 94 Room Air 12/08/19 16:45 2 I&O- Last 24 Hours up to 6 AM 12/10/19 06:00 Intake Total 2410 ml Output Total 2900 ml Balance -490 ml LAYA FOWLER MD Dec 10, 2019 08:14
[2019-12-10] MEDS: CARVedilol 12.5 MG TAB PO SCH ×2 (09:41→20:59)
[2019-12-10] MEDS: HEPARIN SOD (PORCINE) 5000 UNITS/ML VIAL (J1644 PER 1000UNITS) SQ SCH ×2 (09:41→21:00)
[2019-12-10] MEDS: amLODIPine 5 MG TAB PO SCH (09:41)
[2019-12-10 10:04] LABS: PHOSPHORUS LEVEL 1.6 MG/DL (2.5-4.9)
[2019-12-10] MEDS: KCL 20MEQ IN D5W 1000ML 1,000 ML IV SCH ×2 (10:29→23:49)
[2019-12-10] MEDS: cefTRIAXone SOD 2 GM in D5W MINI-BAG PLUS 50 ML IV SCH (11:08)
[2019-12-10 14:09] VITALS: BP 145/66
[2019-12-10 14:23] LABS: CALCIUM LEVEL 9.3 MG/DL (8.8-10.2); CREATININE FOR GFR 2.53 MG/DL (0.55-1.30); GLOMERULAR FILTRATION RATE 19.2 (>32); MAGNESIUM LEVEL 1.8 MG/DL (1.8-2.4); POTASSIUM SERUM 3.6 MEQ/L (3.5-5.1)
--- NOTE | 2019-12-10 16:33 | IPNPDOC ---
Text Note Date of Service The patient was seen on 12/10/19. NOTE Chief Complaint/HPI Sister Remedios is seen sitting up in bed this morning taking her medications. She has no new complaints this morning. I answered her questions regarding her treatment here and the plan and she verbalized that she understood. Per nursing, pt is doing better this morning, but her progress is very minimal. Physical Examination General Exam: Positive: Cooperative, No Acute Distress Eye Exam: Positive: PERRLA, Conjunctiva & lids normal; Negative: Sclera icteric ENT Exam: Positive: Atraumatic, Mucous membr. moist/pink, Pharynx Normal Neck Exam: Positive: Supple; Negative: JVD, thyromegaly Chest Exam: Positive: Clear to auscultation, Normal air movement Heart Exam: Positive: Rate Normal, Regular Rhythm, 3/6 harsh murmur [address]S2 [address]; Negative: Rubs Abdomen Exam: Positive: Normal bowel sounds, Soft Extremity Exam: Negative: Clubbing, Cyanosis, Edema Skin Exam: Positive: Nl turgor and temperature; Negative: Breakdown, Lesion Neuro Exam: Positive: Other (No focal deficits. ) Psych Exam: Positive: Other (oriented to person only) Assessment Complicated UTI/ Pyelonephritis with sepsis with obstructive uropathy of the left urine culture and blood culture Proteus. continue ceftriaxone. S/p perc nephroterouretric drain on 12/08; currently draining well Gram negative bacteremia 2/2 pyelonephritis Proteus in blood and urine cultures. Acute metabolic encephalopathy with underlying mild dementia 2/2 UTI and hypercalcemia continue abx for UTI and IVF for hypercalcemia Hypernatremia Now on D5w IVF repeat BMP shows mild improvement Hypokalemia continue replacements prn repeat BMP shows now resolved Lactic acidosis 2/2 infection re-check with current abx treatment and IVF Left Sided Ureteral Stone with left hydronephrosis s/p percutaneous nephroureteric drain ERON on CKD due to obstructive uropathy, infection , poor oral intake , some GI loss. Continue IVF patient's creatinine was normal in 2017 it started rising from november 2018 and was stable in 1.5 to 1.8 range then suddenly jumped up in September since then has gone as high as 4.8. today 2.53 Hypercalcemia -will hold calcitriol -resolved with IVF HTN -Continue amlodipine and carvedilol Normocytic Anemia -Hgb stable, will transfuse for Hgb <8 A. fib -will hold coumadin as will be going for IR perc nephrostomy -INR supratherapeutic , given Vit k total 15 mg. - now on Heparin Hx of Ulcerative Colitis Cont Mesalamine when eating po. Hx of Diastolic CHF hypovolemic will give cautious fluids. DVT prophylaxis TEDS VS,Fishbone, I+O VS, Fishbone, I+O Laboratory Tests 12/10/19 05:48 12/10/19 13:51 Vital Signs Date Time Temp Pulse Resp B/P (MAP) Pulse Ox O2 Delivery O2 Flow Rate FiO2 12/10/19 09:41 70 135/81 12/10/19 06:00 98.0 16 94 Room Air 12/08/19 16:45 2 I&O- Last 24 Hours up to 6 AM 12/10/19 06:00 Intake Total 2410 ml Output Total 2900 ml Balance -490 ml STACY SHERMAN PA-C Dec 10, 2019 16:33
[2019-12-10 22:00] VITALS: BP 149/70
[2019-12-11 06:00] VITALS: BP 149/70
[2019-12-11 07:14] LABS: BASO # 0.1 10^3/uL (0.0-0.2); BASO % 0.6 % (0.0-1.0); EOS # 0.1 10^3/uL (0.0-0.5); EOS % 1.1 % (0.0-3.0); HEMATOCRIT 29.9 % (36.0-47.0); HEMOGLOBIN 9.8 g/dl (12.0-15.5); LYMPH # 0.9 10^3/uL (1.5-5.0); LYMPH % 10.8 % (24.0-44.0); MEAN CORPUSCULAR HGB CONC 32.8 g/dl (32.0-36.5); MEAN CORPUSCULAR VOLUME 91.4 fl (80.0-96.0); MONO # 0.6 10^3/uL (0.0-0.8); MONO % 7.5 % (0.0-5.0); NEUTROPHILS # 6.2 10^3/uL (1.5-8.5); NEUTROPHILS % 75.5 % (36.0-66.0); PLATELET COUNT, AUTOMATED 159 10^3/uL (150-450); RED BLOOD COUNT 3.27 10^6/uL (4.00-5.40); WHITE BLOOD COUNT 8.2 10^3/uL (4.0-10.0)
[2019-12-11 07:26] LABS: INR 1.28; PROTHROMBIN TIME 15.8 SECONDS (11.8-14.0)
[2019-12-11 07:34] LABS: CALCIUM LEVEL 9.6 MG/DL (8.8-10.2); CREATININE FOR GFR 2.25 MG/DL (0.55-1.30); POTASSIUM SERUM 3.5 MEQ/L (3.5-5.1)
[2019-12-11] MEDS: CARVedilol 12.5 MG TAB PO SCH ×2 (09:18→20:35)
[2019-12-11] MEDS: amLODIPine 5 MG TAB PO SCH (09:19)
[2019-12-11] MEDS: HEPARIN SOD (PORCINE) 5000 UNITS/ML VIAL (J1644 PER 1000UNITS) SQ SCH ×2 (09:19→20:27)
[2019-12-11] MEDS: POTASSIUM CHLORIDE 10 MEQ SR TABLET PO SCH (09:19)
--- NOTE | 2019-12-11 10:48 | IPNPDOC ---
Text Note Date of Service The patient was seen on 12/11/19. NOTE SUBJECITVE: Patient is very somnolent this morning. As per nurses n eva singh. She tends to be more awake in the afternoons. As per sister in the room she is stand pivot only and uses a motorized chair. SHe does feed herself. Just prior to admission they were needing reji lift some times to mobilize her. Her nephrostomy is draining clear urine. SHe also has a connors. Physical Examination General Exam: Positive: Cooperative, No Acute Distress Eye Exam: Positive: PERRLA, Conjunctiva & lids normal; Negative: Sclera icteric ENT Exam: Positive: Atraumatic, Mucous membr. moist/pink, Pharynx Normal Neck Exam: Positive: Supple; Negative: JVD, thyromegaly Chest Exam: Positive: Clear to auscultation, Normal air movement Heart Exam: Positive: Rate Normal, Regular Rhythm, 3/6 harsh murmur S1S2 intact; Negative: Rubs Abdomen Exam: Positive: Normal bowel sounds, Soft Extremity Exam: Negative: Clubbing, Cyanosis, Edema Skin Exam: Positive: Nl turgor and temperature; Negative: Breakdown, Lesion Neuro Exam: Positive: Other (No focal deficits. ) Psych Exam: Positive: Other (oriented to person only) Assessment Complicated UTI/ Pyelonephritis with sepsis with obstructive uropathy of the left urine culture and blood culture Proteus. continue ceftriaxone for 10 to 14 days as per urology and further procedure as outpatient to see if the stones are gone or not. S/p perc nephroterouretric drain on 12/08; currently draining well Follow up with urology as outpatient. Gram negative bacteremia 2/2 pyelonephritis Proteus in blood and urine cultures. Acute metabolic encephalopathy with underlying mild dementia 2/2 UTI and hypercalcemia continue abx for UTI and IVF for hypercalcemia Hypernatremia Now on D5w IVF repeat BMP shows improvement Hypokalemia continue replacements prn repeat BMP shows now resolved Lactic acidosis 2/2 infection re-check with current abx treatment and IVF Left Sided Ureteral Stones with left hydronephrosis s/p percutaneous nephroureteric drain ERON on CKD due to obstructive uropathy, infection , poor oral intake , some GI loss. Continue IVF patient's creatinine was normal in 2017 it started rising from november 2018 and was stable in 1.5 to 1.8 range then suddenly jumped up in September since then has gone as high as 4.8. today 2.53 Hypercalcemia will hold calcitriol -resolved with IVF probably due to dehydration. HTN -Continue amlodipine and carvedilol Normocytic Anemia -Hgb stable, will transfuse for Hgb <8 A. fib will hold coumadin as hemal need further urological procedure within the next 2 weeks now on Heparin Hx of Ulcerative Colitis Cont Mesalamine when eating po. Hx of Diastolic CHF hypovolemic will give cautious fluids. DVT prophylaxis TEDS, heparin VS,Fishbone, I+O VS, Fishbone, I+O Laboratory Tests 12/10/19 13:51 12/11/19 06:23 Vital Signs Date Time Temp Pulse Resp B/P (MAP) Pulse Ox O2 Delivery O2 Flow Rate FiO2 12/11/19 09:19 63 149/70 12/11/19 06:00 98.3 18 98 12/10/19 06:00 Room Air 12/08/19 16:45 2 I&O- Last 24 Hours up to 6 AM 12/11/19 06:00 Intake Total 2967 ml Output Total 1450 ml Balance 1517 ml VIOLET DIAL MD Dec 11, 2019 10:48
[2019-12-11 12:10] VITALS: BP 161/84
[2019-12-11] MEDS: cefTRIAXone SOD 2 GM in D5W MINI-BAG PLUS 50 ML IV SCH (12:18)
[2019-12-11] MEDS: KCL 20MEQ IN D5W 1000ML 1,000 ML IV SCH (12:18)
[2019-12-11 15:02] VITALS: BP 133/62
[2019-12-11] MEDS ORDERED: HEPARIN SOD (PORCINE) 5000 UNITS/ML VIAL (J1644 PER 1000UNITS) SQ SCH (21:00)
[2019-12-11 22:00] VITALS: BP 153/71
[2019-12-12] MEDS: KCL 20MEQ IN D5W 1000ML 1,000 ML IV SCH ×2 (01:36→15:02)
[2019-12-12 05:51] VITALS: BP 153/70
[2019-12-12 06:56] LABS: HEMATOCRIT 34.2 % (36.0-47.0); HEMOGLOBIN 11.1 g/dl (12.0-15.5); MEAN CORPUSCULAR HEMOGLOBIN 30.1 pg (27.0-33.0); MEAN CORPUSCULAR HGB CONC 32.5 g/dl (32.0-36.5); MEAN CORPUSCULAR VOLUME 92.7 fl (80.0-96.0); PLATELET COUNT, AUTOMATED 189 10^3/uL (150-450); RED BLOOD COUNT 3.69 10^6/uL (4.00-5.40); WHITE BLOOD COUNT 13.2 10^3/uL (4.0-10.0)
[2019-12-12 07:18] LABS: INR 1.17; PROTHROMBIN TIME 14.6 SECONDS (11.8-14.0)
[2019-12-12 07:23] LABS: CALCIUM LEVEL 9.2 MG/DL (8.8-10.2); CREATININE FOR GFR 2.1 MG/DL (0.55-1.30); GLOMERULAR FILTRATION RATE 23.8 (>32); POTASSIUM SERUM 3.4 MEQ/L (3.5-5.1)
[2019-12-12 07:31] LABS: EOSINOPHILS 2 % (0-3); LYMPHOCYTES 12 % (16-44); METAMYELOCYTES 5 % (0-0); MONOCYTES 7 % (0-5); NEUTROPHILS 72 % (28-66)
[2019-12-12 07:32] LABS: PLATELET ESTIMATE NORMAL (NORMAL)
[2019-12-12] MEDS: amLODIPine 5 MG TAB PO SCH (10:08)
[2019-12-12] MEDS: POTASSIUM CHLORIDE 10 MEQ SR TABLET PO SCH (10:08)
[2019-12-12] MEDS: HEPARIN SOD (PORCINE) 5000 UNITS/ML VIAL (J1644 PER 1000UNITS) SQ SCH ×2 (10:09→20:19)
[2019-12-12] MEDS: CARVedilol 12.5 MG TAB PO SCH ×2 (10:09→20:20)
[2019-12-12] MEDS: cefTRIAXone SOD 2 GM in D5W MINI-BAG PLUS 50 ML IV SCH (11:54)
[2019-12-12 14:00] VITALS: BP 140/66
--- NOTE | 2019-12-12 15:23 | IPNPDOC ---
Text Note Date of Service The patient was seen on 12/12/19. NOTE SUBJECTIVE: Patient in laying in bed awake, responding to name knows he is at the hospital says not feeling good but cannot say what is bothering her, Her abdomen is log deck tender, no fever or chills, As per nurses she is full care , not much PO intake. nephrostomy working well. Physical Examination General Exam: Positive: Cooperative, No Acute Distress Eye Exam: Positive: PERRLA, Conjunctiva & lids normal; Negative: Sclera icteric ENT Exam: Positive: Atraumatic, Mucous membr. moist/pink, Pharynx Normal Neck Exam: Positive: Supple; Negative: JVD, thyromegaly Chest Exam: Positive: Clear to auscultation, Normal air movement Heart Exam: Positive: Rate Normal, Regular Rhythm, 3/6 harsh murmur S1S2 intact; Negative: Rubs Abdomen Exam: Positive: Normal bowel sounds, Soft Extremity Exam: Negative: Clubbing, Cyanosis, Edema Skin Exam: Positive: Nl turgor and temperature; Negative: Breakdown, Lesion Neuro Exam: Positive: Other (No focal deficits. ) Psych Exam: Positive: Other (oriented to person only) Assessment Complicated UTI/ Pyelonephritis with sepsis with obstructive uropathy of the left urine culture and blood culture Proteus. continue ceftriaxone for 10 to 14 days as per urology and further procedure as outpatient to see if the stones are gone or not. S/p perc nephroterouretric drain on 12/08; currently draining well Follow up with urology as outpatient. Gram negative bacteremia 2/2 pyelonephritis Proteus in blood and urine cultures. Acute metabolic encephalopathy with underlying mild dementia 2/2 UTI and hypercalcemia continue abx for UTI and IVF for hypercalcemia Hypernatremia Now on D5w IVF repeat BMP shows improvement Hypokalemia continue replacements prn repeat BMP shows now resolved Lactic acidosis 2/2 infection re-check with current abx treatment and IVF Left Sided Ureteral Stones with left hydronephrosis s/p percutaneous nephroureteric drain ERON on CKD due to obstructive uropathy, infection , poor oral intake , some GI loss. Continue IVF patient's creatinine was normal in 2017 it started rising from november 2018 and was stable in 1.5 to 1.8 range then suddenly jumped up in September since then has gone as high as 4.8. today 2.53 Hypercalcemia will hold calcitriol -resolved with IVF probably due to dehydration. HTN -Continue amlodipine and carvedilol Normocytic Anemia -Hgb stable, will transfuse for Hgb <8 A. fib will hold coumadin as hemal need further urological procedure within the next 2 weeks now on Heparin Hx of Ulcerative Colitis Cont Mesalamine when eating po. Hx of Diastolic CHF hypovolemic will give cautious fluids. DVT prophylaxis TEDS, heparin VS,Fishbone, I+O VS, Fishbone, I+O Laboratory Tests 12/12/19 06:26 Vital Signs Date Time Temp Pulse Resp B/P (MAP) Pulse Ox O2 Delivery O2 Flow Rate FiO2 12/12/19 10:09 76 153/70 12/12/19 05:51 97.3 19 95 Room Air 12/08/19 16:45 2 I&O- Last 24 Hours up to 6 AM 12/12/19 06:00 Intake Total 1195 ml Output Total 1750 ml Balance -555 ml VIOLET DIAL MD Dec 12, 2019 15:23
[2019-12-12] MEDS: KCL 40MEQ in NS 1000ML 1,000 ML IV SCH (16:31)
[2019-12-12] MEDS ORDERED: CALCIUM CARBONATE 500 MG CHEW U/D PO SCH (18:00)
[2019-12-12] MEDS: ACETAMINOPHEN TAB 650MG DOSE (2X325MG) PO PRN (20:21)
[2019-12-12] MEDS: CALCIUM CARBONATE 500 MG CHEW U/D PO PRN (20:21)
[2019-12-12 22:00] VITALS: BP 137/65
[2019-12-13] MEDS: NORCO, ANEXSIA 5/325MG TABLET (HYDROcodone/ACETAMINOPHEN) PO PRN ×2 (01:47→13:20)
[2019-12-13] MEDS: KCL 40MEQ in NS 1000ML 1,000 ML IV SCH ×2 (04:20→23:38)
[2019-12-13 06:00] VITALS: BP 144/72
[2019-12-13 06:30] LABS: HEMATOCRIT 29.3 % (36.0-47.0); HEMOGLOBIN 9.7 g/dl (12.0-15.5); MEAN CORPUSCULAR HEMOGLOBIN 30.6 pg (27.0-33.0); MEAN CORPUSCULAR HGB CONC 33.1 g/dl (32.0-36.5); MEAN CORPUSCULAR VOLUME 92.4 fl (80.0-96.0); PLATELET COUNT, AUTOMATED 197 10^3/uL (150-450); RED BLOOD COUNT 3.17 10^6/uL (4.00-5.40); WHITE BLOOD COUNT 15.9 10^3/uL (4.0-10.0)
[2019-12-13 06:40] LABS: INR 1.14; PROTHROMBIN TIME 14.3 SECONDS (11.8-14.0)
[2019-12-13 06:59] LABS: CALCIUM LEVEL 9.3 MG/DL (8.8-10.2); CREATININE FOR GFR 2.1 MG/DL (0.55-1.30); GLOMERULAR FILTRATION RATE 23.8 (>32); POTASSIUM SERUM 4.1 MEQ/L (3.5-5.1)
[2019-12-13 07:35] LABS: ANISOCYTOSIS 1+; ATYPICAL LYMPH 1 % (0-5); EOSINOPHILS 1 % (0-3); LYMPHOCYTES 10 % (16-44); METAMYELOCYTES 4 % (0-0); MONOCYTES 6 % (0-5); MYELOCYTES 3 % (0-0); NEUTROPHILS 73 % (28-66); PLATELET ESTIMATE NORMAL (NORMAL)
[2019-12-13] MEDS: CARVedilol 12.5 MG TAB PO SCH ×2 (08:32→20:49)
[2019-12-13] MEDS: amLODIPine 5 MG TAB PO SCH (08:32)
[2019-12-13] MEDS: HEPARIN SOD (PORCINE) 5000 UNITS/ML VIAL (J1644 PER 1000UNITS) SQ SCH ×2 (08:32→20:45)
[2019-12-13] MEDS: POTASSIUM CHLORIDE 10 MEQ SR TABLET PO SCH ×2 (08:33→08:34)
[2019-12-13] MEDS: cefTRIAXone SOD 2 GM in D5W MINI-BAG PLUS 50 ML IV SCH (11:16)
--- NOTE | 2019-12-13 12:07 | IPNPDOC ---
Subjective Date Seen The patient was seen on 12/13/19. Subjective Chief Complaint/HPI Patient says that she is not feeling well, as per nurses did not sleep till 3 am. has not been out of bed. In fact patient does not want to move much . She is able to feed herself at the [facility] but here she is not eating much. she uses a motorized chair to mobilize. WBC on the rise again, no fever or chills, continues to complain of abdominal pain. Objective Physical Examination General Exam: Positive: Cooperative, No Acute Distress, Other (drowsy) Eye Exam: Positive: PERRLA, Conjunctiva & lids normal, EOMI; Negative: Sclera icteric ENT Exam: Positive: Atraumatic, Mucous membr. moist/pink, Pharynx Normal Neck Exam: Positive: Supple; Negative: JVD, thyromegaly Chest Exam: Positive: Clear to auscultation, Normal air movement Heart Exam: Positive: Rate Normal, Regular Rhythm, Normal S1, Normal S2; Negative: Murmurs, Rubs Abdomen Exam: Positive: Normal bowel sounds, Soft, Tenderness (in the left and right lumber region), Other (No rebound or guarding) Extremity Exam: Negative: Clubbing, Cyanosis, Edema Skin Exam: Positive: Nl turgor and temperature; Negative: Breakdown, Lesion Neuro Exam: Positive: Other (No focal deficits. 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 nephrostomy working well. Physical Examination General Exam: Positive: Cooperative, No Acute Distress Eye Exam: Positive: PERRLA, Conjunctiva & lids normal; Negative: Sclera icteric ENT Exam: Positive: Atraumatic, Mucous membr. moist/pink, Pharynx Normal Neck Exam: Positive: Supple; Negative: JVD, thyromegaly Chest Exam: Positive: Clear to auscultation, Normal air movement Heart Exam: Positive: Rate Normal, Regular Rhythm, 3/6 harsh murmur S1S2 intact; Negative: Rubs Abdomen Exam: Positive: Normal bowel sounds, Soft, tender in the right flank Extremity Exam: Negative: Clubbing, Cyanosis, Edema Skin Exam: Positive: Nl turgor and temperature; Negative: Breakdown, Lesion Neuro Exam: Positive: Other (No focal deficits. ) Psych Exam: Positive: Other (oriented to person only) LABS; Reviewed as below. ASSESSMENT: Complicated UTI/ Pyelonephritis with sepsis with obstructive uropathy of the left urine culture and blood culture Proteus. continue ceftriaxone for 10 to 14 days as per urology and further procedure as outpatient to see if the stones are gone or not. S/p perc nephroterouretric drain on 12/08; currently draining well Follow up with urology as outpatient. Gram negative bacteremia 2/2 pyelonephritis Proteus in blood and urine cultures. Acute metabolic encephalopathy with underlying mild dementia 2/2 UTI and hypercalcemia continue abx for UTI Hypernatremia resolved will change IVF to NS. Hypokalemia continue replacements prn repeat BMP shows now resolved Lactic acidosis 2/2 infection re-check with current abx treatment and IVF Left Sided Ureteral Stones with left hydronephrosis s/p percutaneous nephroureteric drain ERON on CKD due to obstructive uropathy, infection , poor oral intake , some GI loss. patient's creatinine was normal in 2017 it started rising from november 2018 and was stable in 1.5 to 1.8 range then suddenly jumped up in September since then has gone as high as 4.8. improving slowly, very poor oral intake so still of IVF Hypercalcemia will hold calcitriol -resolved with IVF probably due to dehydration. HTN -Continue amlodipine and carvedilol Normocytic Anemia -Hgb stable, will transfuse for Hgb <8 A. fib will hold coumadin as will need further urological procedure within the next 2 weeks now on Heparin Hx of Ulcerative Colitis Cont Mesalamine when eating po. Hx of Diastolic CHF hypovolemic will give cautious fluids. DVT prophylaxis TEDS, heparin Plan/VTE VTE Prophylaxis Ordered?: Yes VS, I&O, 24H, Fishbone Vital Signs/I&O Vital Signs Date Time Temp Pulse Resp B/P (MAP) Pulse Ox O2 Delivery O2 Flow Rate FiO2 12/13/19 08:32 74 144/72 12/13/19 06:00 98.1 20 96 Room Air 12/08/19 16:45 2 I&O- Last 24 Hours up to 6 AM 12/13/19 06:00 Intake Total 2327 ml Output Total 800 ml Balance 1527 ml Laboratory Data 24H LABS Laboratory Tests 2 12/13/19 06:20: Immature Granulocyte % (Auto) , Nucleated Red Blood Cells % (auto) 0.0, Neutroph ils 73H, Band Neutrophils 2, Lymphocytes (Manual) 10L, Monocytes (Manual) 6H, Eosinophils (Manual) 1, Metamyelocytes 4H, Myelocytes 3H, Atypical Lymphocytes 1, Anisocytosis 1+, Macrocytosis 1+, Platelet Estimate NORMAL, Prothrombin Time 14.3H, Prothromb Time International Ratio 1.14, Anion Gap 5L, Glomerular Filtration Rate 23.8L, Calcium Level 9.3 CBC/BMP Laboratory Tests 12/13/19 06:20 Microbiology Microbiology 12/09/19 Blood Culture - Preliminary, Resulted No Growth after 72 hours. All specime... 12/09/19 Blood Culture - Preliminary, Resulted No Growth after 72 hours. All specime... 12/08/19 Gram Stain - Final, Complete 12/08/19 Body Fluid Culture - Final, Complete Proteus Mirabilis 12/08/19 Anaerobic Culture - Final, Complete 12/07/19 Respiratory Virus Panel (PCR) ([facility]) - Final, Complete 12/07/19 Urine Culture - Final, Complete Proteus Mirabilis 12/07/19 Blood Culture - Final, Complete Proteus Mirabilis 12/07/19 Blood Culture - Final, Complete Proteus Mirabilis VIOLET DIAL MD Dec 13, 2019 12:07
[2019-12-13 13:38] VITALS: BP 111/43
[2019-12-13] MEDS: NYSTATIN 100,000 UNITS/GM TOPICAL PWD 15 GM TOP SCH (20:45)
[2019-12-13 22:00] VITALS: BP 121/54
[2019-12-14] MEDS: CALCIUM CARBONATE 500 MG CHEW U/D PO PRN (04:25)
[2019-12-14] MEDS: ACETAMINOPHEN TAB 650MG DOSE (2X325MG) PO PRN (04:45)
[2019-12-14 06:00] VITALS: BP 144/67
[2019-12-14 07:02] LABS: HEMATOCRIT 27.6 % (36.0-47.0); HEMOGLOBIN 8.8 g/dl (12.0-15.5); MEAN CORPUSCULAR HEMOGLOBIN 29.9 pg (27.0-33.0); MEAN CORPUSCULAR HGB CONC 31.9 g/dl (32.0-36.5); MEAN CORPUSCULAR VOLUME 93.9 fl (80.0-96.0); PLATELET COUNT, AUTOMATED 209 10^3/uL (150-450); RED BLOOD COUNT 2.94 10^6/uL (4.00-5.40); WHITE BLOOD COUNT 15.6 10^3/uL (4.0-10.0)
[2019-12-14 07:15] LABS: INR 1.14; PROTHROMBIN TIME 14.3 SECONDS (11.8-14.0)
[2019-12-14 07:26] LABS: CALCIUM LEVEL 9.4 MG/DL (8.8-10.2); CREATININE FOR GFR 1.88 MG/DL (0.55-1.30); POTASSIUM SERUM 4.6 MEQ/L (3.5-5.1)
[2019-12-14 07:57] LABS: ATYPICAL LYMPH 1 % (0-5); EOSINOPHILS 7 % (0-3); LYMPHOCYTES 7 % (16-44); METAMYELOCYTES 2 % (0-0); MONOCYTES 2 % (0-5); NEUTROPHILS 81 % (28-66); PLATELET ESTIMATE NORMAL (NORMAL)
[2019-12-14 07:58] LABS: ANISOCYTOSIS 1+
[2019-12-14] MEDS: POTASSIUM CHLORIDE 10 MEQ SR TABLET PO SCH (09:00)
[2019-12-14] MEDS: amLODIPine 5 MG TAB PO SCH (09:36)
[2019-12-14] MEDS: NORCO, ANEXSIA 5/325MG TABLET (HYDROcodone/ACETAMINOPHEN) PO PRN ×2 (09:36→21:40)
[2019-12-14] MEDS: CARVedilol 12.5 MG TAB PO SCH ×2 (09:36→21:40)
[2019-12-14] MEDS: HEPARIN SOD (PORCINE) 5000 UNITS/ML VIAL (J1644 PER 1000UNITS) SQ SCH (09:36)
[2019-12-14] MEDS: NYSTATIN 100,000 UNITS/GM TOPICAL PWD 15 GM TOP SCH ×2 (09:37→21:41)
[2019-12-14] MEDS: cefTRIAXone SOD 2 GM in D5W MINI-BAG PLUS 50 ML IV SCH ×2 (10:24→21:41)
[2019-12-14 14:00] VITALS: BP 120/50
[2019-12-14] MEDS: KCL 40MEQ in NS 1000ML 1,000 ML IV SCH (19:50)
--- NOTE | 2019-12-14 20:57 | IPNPDOC ---
Text Note Date of Service The patient was seen on 12/14/19. NOTE Subjective: Patient complain of the left flank pain, she stated that the pain around 7 out of 10. Also she complains of generalized weakness. Objective: VITAL SIGNS: Please see below. GENERAL APPEARANCE: In moderate distress HEENT: Normocephalic, atraumatic. Mucous members moist and pink CARDIOVASCULAR: S1-S2 LUNGS: Diminished lung sounds ABDOMEN: Abdomen is soft and nontender, left nephrostomy in place MUSCULOSKELETAL: Range of motion is intact in all 4 extremities NEUROLOGICAL: Cranial nerves II-12 are grossly intact. 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 Patient was diagnosed with left hydroureteronephrosis with 2-3 mid ureteral stones with significant perinephric and peripelvic stranding. Patient developed acute pyelonephritis, left nephrostomy was placed Sepsis Secondary to acute pyelonephritis due to left ureteral obstruction Patient received treatment with ceftriaxone, continued ceftriaxone inpatient Urine culture and blood culture positive for Proteus, pansensitive Follow-up with urologist in the outpatient settings Acute pyelonephritis See above Acute metabolic encephalopathy Secondary to sepsis Resolved Electrolyte imbalance Replenished ERON Secondary to ureteral obstruction and acute pyelonephritis Hypertension Continue home meds Blood pressures under control A. fib Heart rate is under control Will start apixaban with renally adjusted dose Hypertension Blood pressures under control Continue home meds VS,Fishbone, I+O VS, Fishbone, I+O Laboratory Tests 12/14/19 06:50 Vital Signs Date Time Temp Pulse Resp B/P (MAP) Pulse Ox O2 Delivery O2 Flow Rate FiO2 12/14/19 14:00 97.3 55 18 120/50 (73) 99 Room Air 12/08/19 16:45 2 l I&O- Last 24 Hours up to 6 AM 12/14/19 06:00 Intake Total 1660 ml Output Total 1175 ml Balance 485 ml MARIA E EDWARDS DO Dec 14, 2019 20:57
[2019-12-14 21:25] VITALS: BP 142/74
[2019-12-14] MEDS: APIXABAN 2.5 MG TAB (ELIQUIS) PO SCH (21:40)
[2019-12-14 22:00] VITALS: BP 142/74
[2019-12-14] MEDS: RAMELTEON 8 MG TAB (ROZEREM) PO SCH (22:28)
[2019-12-15] MEDS: ACETAMINOPHEN TAB 650MG DOSE (2X325MG) PO PRN ×2 (01:31→20:23)
[2019-12-15] MEDS: CALCIUM CARBONATE 500 MG CHEW U/D PO PRN (02:15)
[2019-12-15 06:00] VITALS: BP 144/72
[2019-12-15 06:51] LABS: INR 1.36; PROTHROMBIN TIME 16.5 SECONDS (11.8-14.0)
[2019-12-15 07:00] LABS: CALCIUM LEVEL 10.2 MG/DL (8.8-10.2); CREATININE FOR GFR 1.93 MG/DL (0.55-1.30); GLOMERULAR FILTRATION RATE 26.2 (>32); POTASSIUM SERUM 5.1 MEQ/L (3.5-5.1)
[2019-12-15 07:48] LABS: HEMOGLOBIN 9.9 g/dl (12.0-15.5); MEAN CORPUSCULAR HEMOGLOBIN 29.3 pg (27.0-33.0); MEAN CORPUSCULAR HGB CONC 30.9 g/dl (32.0-36.5); MEAN CORPUSCULAR VOLUME 94.7 fl (80.0-96.0); RED BLOOD COUNT 3.38 10^6/uL (4.00-5.40); WHITE BLOOD COUNT 27.9 10^3/uL (4.0-10.0)
[2019-12-15 08:05] LABS: PLATELET COUNT, AUTOMATED 333 10^3/uL (150-450)
[2019-12-15 08:40] LABS: EOSINOPHILS 1 % (0-3); LYMPHOCYTES 4 % (16-44); MONOCYTES 3 % (0-5); MYELOCYTES 3 % (0-0); NEUTROPHILS 85 % (28-66)
[2019-12-15 08:42] LABS: PLATELET ESTIMATE NORMAL (NORMAL)
[2019-12-15 08:43] LABS: ANISOCYTOSIS 1+
[2019-12-15] MEDS: APIXABAN 2.5 MG TAB (ELIQUIS) PO SCH ×3 (08:54→21:00)
[2019-12-15] MEDS: CARVedilol 12.5 MG TAB PO SCH ×3 (08:54→21:00)
[2019-12-15] MEDS: amLODIPine 5 MG TAB PO SCH (08:56)
[2019-12-15] MEDS: cefTRIAXone SOD 2 GM in D5W MINI-BAG PLUS 50 ML IV SCH (08:58)
[2019-12-15] MEDS: NYSTATIN 100,000 UNITS/GM TOPICAL PWD 15 GM TOP SCH ×3 (09:41→21:00)
[2019-12-15 14:00] VITALS: BP 126/49
[2019-12-15] MEDS: CEFEPIME HCL 1 GM in D5W MINI-BAG PLUS 50 ML IV SCH (14:27)
[2019-12-15 20:21] VITALS: BP 143/57
[2019-12-15] MEDS: RAMELTEON 8 MG TAB (ROZEREM) PO SCH ×2 (20:23→21:00)
[2019-12-15] MEDS: ONDANSETRON 4MG/2ML VIAL (J2405) IV PRN (21:12)
[2019-12-15 21:34] LABS: HEMATOCRIT 31.1 % (36.0-47.0); HEMOGLOBIN 9.8 g/dl (12.0-15.5); MEAN CORPUSCULAR HEMOGLOBIN 29.3 pg (27.0-33.0); MEAN CORPUSCULAR HGB CONC 31.5 g/dl (32.0-36.5); MEAN CORPUSCULAR VOLUME 93.1 fl (80.0-96.0); PLATELET COUNT, AUTOMATED 290 10^3/uL (150-450); RED BLOOD COUNT 3.34 10^6/uL (4.00-5.40); WHITE BLOOD COUNT 23.5 10^3/uL (4.0-10.0)
[2019-12-15 21:48] LABS: ABG BASE EXCESS -8.7 (-2.0-2.0); ABG HCO3 14.6 MEQ/L (22.0-26.0); ABG O2 SATURATION 97.5 % (95.0-99.0); ABG PARTIAL PRESSURE CO2 23.9 mmHg (35.0-45.0); ABG PARTIAL PRESSURE O2 92.3 mmHg (75.0-100.0); ABG STANDARD HCO3 17.4 MEQ/L (22.0-26.0); ABG TOTAL CO2 15.3 MEQ/L (23.0-31.0); ABG pH (ARTERIAL) 7.404 UNITS (7.350-7.450)
[2019-12-15 22:00] VITALS: BP 143/57
[2019-12-16] MEDS: ONDANSETRON 4MG/2ML VIAL (J2405) IV PRN ×3 (04:16→23:55)
[2019-12-16 06:00] VITALS: BP 149/71
[2019-12-16 07:26] LABS: CALCIUM LEVEL 10.2 MG/DL (8.8-10.2); CREATININE FOR GFR 1.67 MG/DL (0.55-1.30); POTASSIUM SERUM 3.9 MEQ/L (3.5-5.1)
[2019-12-16 10:04] VITALS: BP 152/73
[2019-12-16 10:11] VITALS: BP 152/73
[2019-12-16 10:26] LABS: HEMATOCRIT 31.5 % (36.0-47.0); MEAN CORPUSCULAR HEMOGLOBIN 29.9 pg (27.0-33.0); MEAN CORPUSCULAR HGB CONC 31.7 g/dl (32.0-36.5); PLATELET COUNT, AUTOMATED 326 10^3/uL (150-450); RED BLOOD COUNT 3.35 10^6/uL (4.00-5.40); WHITE BLOOD COUNT 26.3 10^3/uL (4.0-10.0)
[2019-12-16] MEDS: NYSTATIN 100,000 UNITS/GM TOPICAL PWD 15 GM TOP SCH ×2 (11:04→20:44)
[2019-12-16] MEDS: CARVedilol 12.5 MG TAB PO SCH ×2 (11:44→20:43)
[2019-12-16] MEDS: APIXABAN 2.5 MG TAB (ELIQUIS) PO SCH ×2 (11:44→20:43)
[2019-12-16] MEDS: amLODIPine 5 MG TAB PO SCH (11:44)
--- NOTE | 2019-12-16 13:31 | IPNPDOC ---
Text Note Date of Service The patient was seen on 12/16/19. NOTE Subjective: Patient complain of generalized weakness. Patient denies fever, c hills, nausea, vomiting. No any acute events overnight Objective: VITAL SIGNS: Please see below. GENERAL APPEARANCE: In moderate distress HEENT: Normocephalic, atraumatic. Mucous members moist and pink CARDIOVASCULAR: S1-S2 LUNGS: Diminished lung sounds ABDOMEN: Abdomen is soft and nontender, left nephrostomy in place MUSCULOSKELETAL: Range of motion is intact in all 4 extremities NEUROLOGICAL: Cranial nerves II-12 are grossly intact. 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 Patient was diagnosed with left hydroureteronephrosis with 2-3 mid ureteral stones with significant perinephric and peripelvic stranding. Patient developed acute pyelonephritis, left nephrostomy was placed. Sepsis Secondary to acute pyelonephritis due to left ureteral obstruction Patient received treatment with ceftriaxone, due to rising leukocytes count I changed ceftriaxone to cefepime Urine culture and blood culture positive for Proteus, pansensitive. Repeated blood culture negative, repeated urine culture negative Follow-up with urologist in the outpatient settings Acute pyelonephritis See above Leukocytosis Due to rising leukocytes count change ceftriaxone to cefepime Patient does not have any fever or chills Repeated blood culture negative Urine culture negative Acute metabolic encephalopathy Secondary to sepsis Resolved Electrolyte imbalance Replenished ERON Secondary to ureteral obstruction and acute pyelonephritis Hypertension Continue home meds Blood pressures under control A. fib Heart rate is under control Will start apixaban with renally adjusted dose Hypertension Blood pressures under control Continue home meds Skin maceration around perianal area Barrier cream application Frequent repositioning VS,Fishbone, I+O VS, Fishbone, I+O Laboratory Tests 12/15/19 21:28 12/16/19 06:39 12/16/19 06:40 Vital Signs Date Time Temp Pulse Resp B/P (MAP) Pulse Ox O2 Delivery O2 Flow Rate FiO2 12/16/19 10:11 12/16/19 10:04 15 99 Room Air I&O- Last 24 Hours up to 6 AM 12/16/19 05:59 Intake Total 1470 ml Output Total 1400 ml Balance 70 ml MARIA E EDWARDS DO Dec 16, 2019 13:31
[2019-12-16] MEDS: NS 1,000 ML IV SCH ×2 (13:50→23:50)
[2019-12-16 14:00] VITALS: BP 159/84
[2019-12-16] MEDS ORDERED: POTASSIUM CHLORIDE 10 MEQ SR TABLET PO ONE (14:00)
[2019-12-16] MEDS: CEFEPIME HCL 1 GM in D5W MINI-BAG PLUS 50 ML IV SCH (15:17)
[2019-12-16] MEDS: CLOTRIMAZOLE 1% TOPICAL CREAM 30GM TOP SCH (18:01)
[2019-12-16] MEDS: RAMELTEON 8 MG TAB (ROZEREM) PO SCH (20:43)
--- NOTE | 2019-12-16 21:10 | REPVR ---
PROCEDURE INFORMATION: Exam: CT Abdomen And Pelvis Without Contrast Exam date and time: 12/16/2019 7:51 PM Age: 84 years old Clinical indication: Kidney abscess TECHNIQUE: Imaging protocol: Computed tomography of the abdomen and pelvis without contrast. Radiation optimization: All CT scans at this facility use at least one of these dose optimization techniques: automated exposure control; mA and/or kV adjustment per patient size (includes targeted exams where dose is matched to clinical indication); or iterative reconstruction. COMPARISON: CT ABD PELVIS W/O CONTRAST 12/07/2019 1:37 PM (The report from this study was not available for review at the time of this interpretation.) FINDINGS: Tubes, catheters and devices: There is a percutaneous left nephroureteral stent entering into a lower pole calyx of the left kidney and into the left ureter and terminating in the left side of the bladder in appropriate position. There is inflammatory fat stranding in the left renal sinus around the left nephroureteral stent. Lungs: There is mild compressive atelectasis in the left lower lobe associated with a trace left pleural effusion. Pleural space: There is a trace left pleural effusion. Heart: No cardiomegaly. No pericardial effusion. There are coronary artery calcifications. There is lipomatous hypertrophy of the interatrial septum. Mediastinum: There is a small sliding hiatal hernia. Diaphragm: Intact. Liver: Unremarkable. No liver lesion is seen. The contour of the liver is smooth. No hepatomegaly is noted. Gallbladder and bile ducts: There are multiple calcified gallstones in the gallbladder. No gallbladder wall thickening, pericholecystic fluid, or pericholecystic inflammatory changes are identified. No dilation of the intrahepatic or extrahepatic bile ducts is noted. Pancreas: Atrophic. No ductal dilation. There is no inflammatory fat stranding around the pancreas to suggest acute pancreatitis. Spleen: Unremarkable. No splenomegaly. Adrenals: Normal. No mass. Kidneys and ureters: The calculi that can be seen in the left ureter in the prior CT on 12/07/2019 are no longer present. No stones are noted in the ureters in the current examination. There is bilateral nonobstructive nephrolithiasis. No hydronephrosis or hydroureter is noted. No renal abscess or perinephric fluid collection is visualized. Incidental note is made of an 18 mm simple exophytic cyst arising from the superior pole of the left kidney, which is stable compared to the prior CT on 12/07/2019 and for which follow-up is not necessary. There is bilateral perinephric stranding, which was also present on the prior CT on 12/07/2019. Stomach and bowel: There is colonic diverticulosis without evidence for diverticulitis. There is no evidence for a bowel obstruction, colitis, pneumatosis intestinalis, intussusception, volvulus, or perforated viscus. Appendix: Normal. No evidence for appendicitis. Intraperitoneal space: Unremarkable. No fluid collection. No free air. Retroperitoneal space: Unremarkable. No fluid collection. No mass. Vasculature: No abdominal aortic aneurysm. There are extensive atherosclerotic calcifications. Incidental note is made of small round calcifications in the pelvis, which are compatible with phleboliths. Lymph nodes: Normal. No enlarged lymph nodes. Bladder: The urinary bladder is decompressed, limiting its optimal evaluation. No stones are seen in the bladder. Reproductive: There has been a hysterectomy. The ovaries are not identified and may have been removed. No adnexal mass is noted. Bones/joints: The imaged bony structures are intact. There is no suspicious osteolytic or osteoblastic lesion. The bones have a demineralized appearance. There is a moderate levoscoliosis of the lumbar spine and degenerative changes in the lumbar spine. 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 No pars defect is noted. 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, severe osteoarthritis of the left basal joint, mild osteoarthritis and chondrocalcinosis involving metacarpophalangeal joint of the left thumb, severe osteoarthritis and chondrocalcinosis involving the metacarpophalangeal joint of the left index finger, severe osteoarthritis involving the proximal interphalangeal joint of the left middle finger, a severe erosive arthropathy involving the distal interphalangeal joint of the left middle finger, a severe erosive arthropathy involving the proximal interphalangeal joint of the left ring finger, and a severe erosive arthropathy involving the proximal interphalangeal joint of the left little finger. Soft tissues: There are multiple calcifications in both breasts. There is a small fat containing umbilical hernia, similar in appearance compared to the prior CT on 12/07/2019. There is nonspecific edema in the subcutaneous tissues posteriorly along the midline of the lumbar spine. There is scarring of the subcutaneous tissues posterolateral to the right hip. IMPRESSION: 1. Left nephroureteral stent in satisfactory position, with inflammatory changes in the left renal sinus around the stent, but no evidence for a renal abscess. 2. Bilateral nonobstructive nephrolithiasis. No stones in the ureters or urinary bladder. No hydronephrosis or hydroureter. 3. Cholelithiasis. 4. Colonic diverticulosis without evidence for diverticulitis. 5. Small fat containing umbilical hernia, similar in appearance compared to the prior CT on 12/07/2019. 6. Trace left pleural effusion. Electronically signed by: Edson Nino On 12/16/2019 21:10:22 PM
[2019-12-16 22:00] VITALS: BP 155/81
[2019-12-16] MEDS: NORCO, ANEXSIA 5/325MG TABLET (HYDROcodone/ACETAMINOPHEN) PO PRN (23:55)
[2019-12-17 06:00] VITALS: BP 136/72
[2019-12-17 06:53] LABS: HEMATOCRIT 28.7 % (36.0-47.0); HEMOGLOBIN 9.2 g/dl (12.0-15.5); MEAN CORPUSCULAR HEMOGLOBIN 30.3 pg (27.0-33.0); MEAN CORPUSCULAR HGB CONC 32.1 g/dl (32.0-36.5); MEAN CORPUSCULAR VOLUME 94.4 fl (80.0-96.0); PLATELET COUNT, AUTOMATED 235 10^3/uL (150-450); RED BLOOD COUNT 3.04 10^6/uL (4.00-5.40); WHITE BLOOD COUNT 20.9 10^3/uL (4.0-10.0)
[2019-12-17 07:02] LABS: CALCIUM LEVEL 9.1 MG/DL (8.8-10.2); CREATININE FOR GFR 1.53 MG/DL (0.55-1.30); GLOMERULAR FILTRATION RATE 34.3 (>32)
[2019-12-17 07:30] VITALS: BP 135/71
--- NOTE | 2019-12-17 07:36 | REP ---
The portable chest, 06:43 a.m., single AP view with the the patient upright: Comparison is 12/07/2019. The lung lopes are clear. The cardiac size is normal. The tip, mediastinum, and skeletal structures are unremarkable. Impression: Negative portable chest. There is no interval change. Electronically Signed by Gerry Israel MD 12/17/2019 07:27 A
[2019-12-17] MEDS: D5W/0.9% SODIUM CHLORIDE 1,000 ML IV SCH ×2 (08:45→20:25)
[2019-12-17] MEDS: CARVedilol 12.5 MG TAB PO SCH ×2 (09:24→20:36)
[2019-12-17] MEDS: APIXABAN 2.5 MG TAB (ELIQUIS) PO SCH ×2 (09:25→20:37)
[2019-12-17] MEDS: amLODIPine 5 MG TAB PO SCH (09:25)
[2019-12-17] MEDS: NYSTATIN 100,000 UNITS/GM TOPICAL PWD 15 GM TOP SCH ×2 (09:28→20:25)
[2019-12-17] MEDS: CLOTRIMAZOLE 1% TOPICAL CREAM 30GM TOP SCH (09:28)
--- NOTE | 2019-12-17 13:28 | IPNPDOC ---
Text Note Date of Service The patient was seen on 12/17/19. NOTE Subjective: Patient is very somnolent in the morning. Glucose level dropped to 56 overnight, patient received D5 with positive effect Objective: VITAL SIGNS: Please see below. GENERAL APPEARANCE: NAD HEENT: Normocephalic, atraumatic. Mucous members moist and pink CARDIOVASCULAR: S1-S2 LUNGS: Diminished lung sounds ABDOMEN: Abdomen is soft and nontender, left nephrostomy in place MUSCULOSKELETAL: Range of motion is intact in all 4 extremities NEUROLOGICAL: Cranial nerves II-12 are grossly intact. Speech is not dysarthric Skin: Significant area of erythema and maceration on the perianal area, no visible ulcers PROCEDURE INFORMATION: Exam: CT Abdomen And Pelvis Without Contrast Exam date and time: 12/16/2019 7:51 PM Age: 84 years old Clinical indication: Kidney abscess TECHNIQUE: Imaging protocol: Computed tomography of the abdomen and pelvis without contrast. Radiation optimization: All CT scans at this facility use at least one of these dose optimization techniques: automated exposure control; mA and/or kV adjustment per patient size (includes targeted exams where dose is matched to clinical indication); or iterative reconstruction. COMPARISON: CT ABD PELVIS W/O CONTRAST 12/07/2019 1:37 PM (The report from this study was not available for review at the time of this interpretation.) FINDINGS: Tubes, catheters and devices: There is a percutaneous left nephroureteral stent entering into a lower pole calyx of the left kidney and into the left ureter and terminating in the left side of the bladder in appropriate position. There is inflammatory fat stranding in the left renal sinus around the left nephroureteral stent. Lungs: There is mild compressive atelectasis in the left lower lobe associated with a trace left pleural effusion. Pleural space: There is a trace left pleural effusion. Heart: No cardiomegaly. No pericardial effusion. There are coronary artery calcifications. There is lipomatous hypertrophy of the interatrial septum. Mediastinum: There is a small sliding hiatal hernia. Diaphragm: Intact. Liver: Unremarkable. No liver lesion is seen. The contour of the liver is smooth. No hepatomegaly is noted. Gallbladder and bile ducts: There are multiple calcified gallstones in the gallbladder. No gallbladder wall thickening, pericholecystic fluid, or pericholecystic inflammatory changes are identified. No dilation of the intrahepatic or extrahepatic bile ducts is noted. Pancreas: Atrophic. No ductal dilation. There is no inflammatory fat stranding around the pancreas to suggest acute pancreatitis. Spleen: Unremarkable. No splenomegaly. Adrenals: Normal. No mass. Kidneys and ureters: The calculi that can be seen in the left ureter in the prior CT on 12/07/2019 are no longer present. No stones are noted in the ureters in the current examination. There is bilateral nonobstructive nephrolithiasis. No hydronephrosis or hydroureter is noted. No renal abscess or perinephric fluid collection is visualized. Incidental note is made of an 18 mm simple exophytic cyst arising from the superior pole of the left kidney, which is stable compared to the prior CT on 12/07/2019 and for which follow-up is not necessary. There is bilateral perinephric stranding, which was also present on the prior CT on 12/07/2019. Stomach and bowel: There is colonic diverticulosis without evidence for diverticulitis. There is no evidence for a bowel obstruction, colitis, pneumatosis intestinalis, intussusception, volvulus, or perforated viscus. Appendix: Normal. No evidence for appendicitis. Intraperitoneal space: Unremarkable. No fluid collection. No free air. Retroperitoneal space: Unremarkable. No fluid collection. No mass. Vasculature: No abdominal aortic aneurysm. There are extensive atherosclerotic calcifications. Incidental note is made of small round calcifications in the pelvis, which are compatible with phleboliths. Lymph nodes: Normal. No enlarged lymph nodes. Bladder: The urinary bladder is decompressed, limiting its optimal evaluation. No stones are seen in the bladder. Reproductive: There has been a hysterectomy. The ovaries are not identified and may have been removed. No adnexal mass is noted. Bones/joints: The imaged bony structures are intact. There is no suspicious osteolytic or osteoblastic lesion. The bones have a demineralized appearance. There is a moderate levoscoliosis of the lumbar spine and degenerative changes in the lumbar spine. 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 No pars defect is noted. 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, severe osteoarthritis of the left basal joint, mild osteoarthritis and chondrocalcinosis involving metacarpophalangeal joint of the left thumb, severe osteoarthritis and chondrocalcinosis involving the metacarpophalangeal joint of the left index finger, severe osteoarthritis involving the proximal interphalangeal joint of the left middle finger, a severe erosive arthropathy involving the distal interphalangeal joint of the left middle finger, a severe erosive arthropathy involving the proximal interphalangeal joint of the left ring finger, and a severe erosive arthropathy involving the proximal interphalangeal joint of the left little finger. Soft tissues: There are multiple calcifications in both breasts. There is a small fat containing umbilical hernia, similar in appearance compared to the prior CT on 12/07/2019. There is nonspecific edema in the subcutaneous tissues posteriorly along the midline of the lumbar spine. There is scarring of the subcutaneous tissues posterolateral to the right hip. IMPRESSION: 1. Left nephroureteral stent in satisfactory position, with inflammatory changes in the left renal sinus around the stent, but no evidence for a renal abscess. 2. Bilateral nonobstructive nephrolithiasis. No stones in the ureters or urinary bladder. No hydronephrosis or hydroureter. 3. Cholelithiasis. 4. Colonic diverticulosis without evidence for diverticulitis. 5. Small fat containing umbilical hernia, similar in appearance compared to the prior CT on 12/07/2019. 6. Trace left pleural effusion. 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 Patient was diagnosed with left hydroureteronephrosis with 2-3 mid ureteral stones with significant perinephric and peripelvic stranding. Patient developed acute pyelonephritis, left nephrostomy was placed. Sepsis Resolved Secondary to acute pyelonephritis due to left ureteral obstruction Patient received treatment with ceftriaxone, due to rising leukocytes count I changed ceftriaxone to cefepime. Due to the leukocytosis there was concern for renal abscess. CT of abdomen and pelvis was done and it was negative kidney abscess. Urine culture and blood culture positive for Proteus, pansensitive. Repeated blood culture negative, repeated urine culture negative Follow-up with urologist in the outpatient settings Acute pyelonephritis See above Leukocytosis Due to rising leukocytes count I changed ceftriaxone to cefepime. CT negative for kidney abscess Patient does not have any fever or chills Repeated blood culture negative Urine culture negative Acute metabolic encephalopathy Secondary to sepsis Resolved Electrolyte imbalance Replenished ERON Improved Secondary to ureteral obstruction and acute pyelonephritis Hypertension Continue home meds Blood pressures under control A. fib Heart rate is under control Will start apixaban with renally adjusted dose Hypertension Blood pressures under control Continue home meds Skin maceration around perianal area Barrier cream application Frequent repositioning VS,Fishbone, I+O VS, Fishbone, I+O Laboratory Tests 12/17/19 06:38 Vital Signs Date Time Temp Pulse Resp B/P (MAP) Pulse Ox O2 Delivery O2 Flow Rate FiO2 12/17/19 09:25 72 135/71 12/17/19 07:30 96.7 11 93 Room Air I&O- Last 24 Hours up to 6 AM 12/17/19 06:00 Intake Total 815 ml Output Total 650 ml Balance 165 ml MARIA E EDWARDS DO Dec 17, 2019 13:28
[2019-12-17 13:52] VITALS: BP 128/65
[2019-12-17] MEDS: CEFEPIME HCL 1 GM in D5W MINI-BAG PLUS 50 ML IV SCH (14:24)
[2019-12-17] MEDS: NORCO, ANEXSIA 5/325MG TABLET (HYDROcodone/ACETAMINOPHEN) PO PRN (15:16)
[2019-12-17] MEDS ORDERED: VENLAFAXINE 25 MG TAB PO ONE (17:30)
[2019-12-17 20:27] VITALS: BP 138/59
[2019-12-17 20:36] VITALS: BP 138/59
[2019-12-17] MEDS: RAMELTEON 8 MG TAB (ROZEREM) PO SCH (20:37)
[2019-12-18] MEDS ORDERED: diphenhydrAMINE INJ 50MG/ML VIAL (J1200) IV PRN (00:30)
[2019-12-18] MEDS: D5W/0.9% SODIUM CHLORIDE 1,000 ML IV SCH (03:35)
[2019-12-18] MEDS ORDERED: MORPHINE 2 MG/ML 1ML VIAL (J2270) IV ONE (04:00)
[2019-12-18 06:17] VITALS: BP 145/60
[2019-12-18 06:39] LABS: HEMATOCRIT 24.3 % (36.0-47.0); HEMOGLOBIN 7.4 g/dl (12.0-15.5); MEAN CORPUSCULAR HEMOGLOBIN 29.5 pg (27.0-33.0); MEAN CORPUSCULAR HGB CONC 30.5 g/dl (32.0-36.5); MEAN CORPUSCULAR VOLUME 96.8 fl (80.0-96.0); PLATELET COUNT, AUTOMATED 166 10^3/uL (150-450); RED BLOOD COUNT 2.51 10^6/uL (4.00-5.40); WHITE BLOOD COUNT 13.7 10^3/uL (4.0-10.0)
[2019-12-18 06:50] LABS: CREATININE FOR GFR 1.5 MG/DL (0.55-1.30); GLOMERULAR FILTRATION RATE 35.1 (>32); POTASSIUM SERUM 3.2 MEQ/L (3.5-5.1)
[2019-12-18] MEDS: amLODIPine 5 MG TAB PO SCH (09:00)
[2019-12-18] MEDS: APIXABAN 2.5 MG TAB (ELIQUIS) PO SCH (09:00)
[2019-12-18] MEDS ORDERED: POTASSIUM CHLORIDE 10 MEQ SR TABLET PO SCH (09:00)
[2019-12-18] MEDS: CARVedilol 12.5 MG TAB PO SCH (09:00)
[2019-12-18] MEDS ORDERED: VENLAFAXINE 25 MG TAB PO SCH (09:00)
[2019-12-18 09:30] VITALS: BP 108/74
[2019-12-18] MEDS: NYSTATIN 100,000 UNITS/GM TOPICAL PWD 15 GM TOP SCH (09:31)
[2019-12-18] MEDS: CLOTRIMAZOLE 1% TOPICAL CREAM 30GM TOP SCH (09:31)
[2019-12-18] MEDS ORDERED: NS 1,000 ML IV SCH (11:01)
[2019-12-18] MEDS ORDERED: LORA0.5T5 PO (11:56)
[2019-12-18] MEDS ORDERED: MORP20SO3 PO (11:56)
[2019-12-18] MEDS ORDERED: HYOS125TA PO (11:56)
[2019-12-18] MEDS ORDERED: SCOPOLAMINE 1MG TRANSDERMAL PATCH TOP PRN (12:00)
[2019-12-18] MEDS ORDERED: FLEET ENEMA PR PRN (12:00)
[2019-12-18] MEDS ORDERED: ONDANSETRON 4 MG ORAL DISINTEGRATING TAB (Q0162 PER 1MG) PO PRN (12:00)
[2019-12-18] MEDS ORDERED: MORPHINE 2 MG/ML 1ML VIAL (J2270) IV PRN (12:00)
[2019-12-18] MEDS ORDERED: LORazepam 1 MG TAB PO PRN (12:00)
[2019-12-18] MEDS ORDERED: ACETAMINOPHEN TAB 650MG DOSE (2X325MG) PO PRN (12:00)
[2019-12-18] MEDS ORDERED: CIPR-250 PO (15:32)
--- NOTE | 2019-12-18 15:40 | DS.PDOC ---
Discharge Summary General Date of Admission Dec 07, 2019 at 15:53 Date of Discharge 12/18/19 Discharge Summary PROCEDURES PERFORMED DURING STAY: [None]. ADMITTING DIAGNOSES: Sepsis Acute pyelonephritis Leukocytosis Acute metabolic encephalopathy Electrolyte imbalance ERON Hypertension A. fib Hypertension Skin maceration around perianal area DISCHARGE DIAGNOSES: Sepsis Acute pyelonephritis Leukocytosis Acute metabolic encephalopathy Electrolyte imbalance ERON Hypertension A. fib Hypertension Skin maceration around perianal area COMPLICATIONS/CHIEF COMPLAINT: Acute Metabolic Encephalopathy. 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 Patient was diagnosed with left hydroureteronephrosis with 2-3 mid ureteral stones with significant perinephric and peripelvic stranding. Patient developed acute pyelonephritis, left nephrostomy was placed HOSPITAL COURSE: During hospital stay the following issue addressed Patient developed sepsis Secondary to acute pyelonephritis due to left ureteral obstruction Patient received treatment with ceftriaxone, due to rising leukocytes count I ch anged ceftriaxone to cefepime. Due to the leukocytosis there was concern for renal abscess. CT of abdomen and pelvis was done and it was negative kidney abscess. Urine culture and blood culture positive for Proteus, pansensitive. Repeated blood culture negative, repeated urine culture negative Follow-up with urologist in the outpatient settings Acute pyelonephritis See above Leukocytosis Due to rising leukocytes count I changed ceftriaxone to cefepime. CT negative for kidney abscess Patient does not have any fever or chills Repeated blood culture negative Urine culture negative Acute metabolic encephalopathy Secondary to sepsis Resolved Electrolyte imbalance Replenished ERON Improved Secondary to ureteral obstruction and acute pyelonephritis Today after meeting with power of motor and generator brush cutter patient was transferred to [facility] status DISCHARGE MEDICATIONS: Please see below. ALLERGIES: Please see below. PHYSICAL EXAMINATION ON DISCHARGE: GENERAL APPEARANCE: NAD HEENT: Normocephalic, atraumatic. Mucous members moist and pink CARDIOVASCULAR: S1-S2 LUNGS: Diminished lung sounds ABDOMEN: Abdomen is soft and nontender, left nephrostomy in place MUSCULOSKELETAL: Range of motion is intact in all 4 extremities NEUROLOGICAL: Cranial nerves II-12 are grossly intact. Speech is not dysarthric Skin: Significant area of erythema and maceration on the perianal area, no visible ulcers LABORATORY DATA: Please see below. IMAGING: PROGNOSIS: Poor ACTIVITY: [As tolerated]. DIET: Regular DISCHARGE PLAN: Hospice care DISPOSITION: 50 [facility]osp[facility] Home. DISCHARGE INSTRUCTIONS: Above ITEMS TO FOLLOWUP ON ON OUTPATIENT: Hospice care DISCHARGE CONDITION: [Stable]. TIME SPENT ON DISCHARGE: Greater than 20 minutes. Vital Signs/I&Os Vital Signs Date Time Temp Pulse Resp B/P (MAP) Pulse Ox O2 Delivery O2 Flow Rate FiO2 12/18/19 06:17 97.6 60 18 145/60 (88) 99 Room Air I&O- Last 24 Hours up to 6 AM 12/18/19 06:00 Intake Total 2840 ml Output Total 675 ml Balance 2165 ml Laboratory Data Labs 24H Laboratory Tests 2 12/17/19 20:23: Bedside Glucose (Misc Panel) 99 12/18/19 06:15: Nucleated Red Blood Cells % (auto) 0.1H, Anion Gap 7L, Glomerular Filtration Rate 35.1, Calcium Level 8.0L CBC/BMP Laboratory Tests 12/18/19 06:15 FSBS Laboratory Tests Test 12/17/19 20:23 Range/Units Bedside Glucose (Misc Panel) 99 83-110 MG/DL Microbiology Microbiology 12/15/19 Urine Culture - Final, Complete 12/15/19 Blood Culture - Preliminary, Resulted No Growth after 72 hours. All specime... 12/09/19 Blood Culture - Final, Complete NO GROWTH AFTER 5 DAYS 12/09/19 Blood Culture - Final, Complete NO GROWTH AFTER 5 DAYS 12/08/19 Gram Stain - Final, Complete 12/08/19 Body Fluid Culture - Final, Complete Proteus Mirabilis 12/08/19 Anaerobic Culture - Final, Complete Discharge Medications Scheduled Acetaminophen (Tylenol Arthritis) 650 Mg Tablet.er, 650 MG PO DAILY, (Reported) Carvedilol (Carvedilol) 12.5 Mg Tab, 6.25 MG PO BID, (Reported) Ciprofloxacin HCl (Cipro) 250 Mg Tablet, 250 MG PO BID Cyclosporine (Restasis) 0.05 % Emu, 1 DROP OU BID, (Reported) Mesalamine (Pentasa) 500 Mg Capsule.er, 500 MG PO BID, (Reported) 2ND DOSE QPM Scheduled PRN Diclofenac Sodium (Diclofenac Sodium) 3% 100GM Gel..gram., 1 APLCT TOP Q6H PRN for PAIN, (Reported) Diphenhydramine HCl (Diphenhydramine HCl) 25 Mg Capsule, 25 MG PO QHS PRN for IN SOMNIA, (Reported) Hyoscyamine Sulfate (Hyoscyamine Sulfate) 0.125 Mg Tab.subl, 0.125 MG PO Q4HP PRN for TERMINAL SECRETIONS Use sublingually if unable to swallow Lorazepam (Lorazepam) 0.5 Mg Tablet, 0.5 MG PO Q4HP PRN for ANXIETY/AGITATION Use sublingually if unable to swallow Morphine Sulfate (Morphine Sulfate) 100 Mg/5 Ml Solution, 0.25-1 ML PO Q2H PRN for PAIN OR DYSPNEA Use sublingually if unable to swallow Polyethylene Glycol 3350 (Miralax) 1 Pow Pow, 17 GRAM PO DAILY PRN for CONSTIPATION, (Reported) Propylene Glycol/Peg 400 (Systane 0.3-0.4% Eye Drops) 15 Ml Bela, 1 DROP OU BID PRN for DRY EYES, (Reported) Tramadol HCl (Tramadol HCl) 50 Mg Tab, 50 MG PO Q4H PRN for PAIN, (Reported) Allergies Coded Allergies: No Known Allergies (Unverified , 02/12/13) MARIA E EDWARDS DO Dec 18, 2019 15:40
== END 2019-12-18 13:50 | disposition hospice, home (50) | DRG 871 ==
LOC: M ED 08:51 → M ED INP 15:53 → ENRESERV 16:15 → M MS5PR 17:55
PROVIDERS: ADMIT Internal Medicine Nephrology; ATTEND Internal Medicine
PROC: 0T9130Z Drainage of Left Kidney with Drainage Device, Percutaneous Approach (ICD-10-PCS; principal; 2019-12-08 15:00)
DX: A41.9 Sepsis, unspecified organism (principal); G93.41 Metabolic encephalopathy; N13.2 Hydronephrosis with renal and ureteral calculous obstruction; E87.2 Acidosis; N17.9 Acute kidney failure, unspecified; I13.0 Hypertensive heart and chronic kidney disease with heart failure and stage 1 through stage 4 chronic kidney disease, or unspecified chronic kidney disease; I50.32 Chronic diastolic (congestive) heart failure; K51.90 Ulcerative colitis, unspecified, without complications; E87.0 Hyperosmolality and hypernatremia; N10 Acute pyelonephritis; N18.4 Chronic kidney disease, stage 4 (severe); E83.52 Hypercalcemia; I48.91 Unspecified atrial fibrillation; L90.8 Other atrophic disorders of skin; Z86.73 Personal history of transient ischemic attack (TIA), and cerebral infarction without residual deficits; F03.90 Unspecified dementia, unspecified severity, without behavioral disturbance, psychotic disturbance, mood disturbance, and anxiety; D69.6 Thrombocytopenia, unspecified; M10.9 Gout, unspecified; D64.9 Anemia, unspecified; Z79.899 Other long term (current) drug therapy; E87.6 Hypokalemia

== ENCOUNTER 2019-12-22 11:10 | Emergency (ER) | payer MEDICARE, MEDICAID ==
[~2019-12-22] VITALS: Ht 157.5 cm; Wt 65.9 kg
[~2019-12-22 11:10] MED LIST changes: +CIPR-250 PO; +DICL1GEL TOP; +DIPH25CA32 PO; +HYOS125TA PO; +LORA0.5T5 PO; +MORP20SO3 PO; +ROCA0.5C PO; +TYLE650T35 PO
[2019-12-22] MEDS ORDERED: DEXA2TA PO (11:45)
[2019-12-22] MEDS ORDERED: ONDANSETRON 4 MG ORAL DISINTEGRATING TAB (Q0162 PER 1MG) PO ONE (13:00)
[2019-12-22] MEDS ORDERED: MORPHINE 10MG/0.5ML ORAL CONCENTRATE SOLUTION U/D SL PRN (13:00)
[2019-12-22 18:15] VITALS: BP 145/69
[2019-12-24] MEDS ORDERED: GNP250TA9 PO (07:12)
== END 2019-12-22 19:24 | disposition home or self-care (01) ==
LOC: M ED 11:10 → EDBD 11:10 → M ED 19:24
DX: T83.128A Displacement of other urinary devices and implants, initial encounter (principal); Y92.9 Unspecified place or not applicable; Y93.9 Activity, unspecified; I48.91 Unspecified atrial fibrillation; I10 Essential (primary) hypertension; Z87.442 Personal history of urinary calculi; Z87.448 Personal history of other diseases of urinary system; Z86.2 Personal history of diseases of the blood and blood-forming organs and certain disorders involving the immune mechanism; F03.90 Unspecified dementia, unspecified severity, without behavioral disturbance, psychotic disturbance, mood disturbance, and anxiety; N18.2 Chronic kidney disease, stage 2 (mild); Z86.73 Personal history of transient ischemic attack (TIA), and cerebral infarction without residual deficits; Z87.19 Personal history of other diseases of the digestive system; M10.9 Gout, unspecified; Z79.899 Other long term (current) drug therapy; Z88.1 Allergy status to other antibiotic agents; Z88.8 Allergy status to other drugs, medicaments and biological substances
CPT/HCPCS: 99285; Q0162

== ENCOUNTER → 2019-12-24 | Outpatient (CLI) | payer MEDICARE, MEDICAID ==
[~2019-12-24] MED LIST changes: +DEXA2TA PO; +GNP250TA9 PO; +ISOVUE-300 61% 50ML VIAL (Q9967) As Ordered ONE; +LIDOCAINE 1% MDV 20ML VIAL As Ordered ONE; +MIDAZOLAM INJ 2 MG/2 ML VIAL (J2250) As Ordered ONE; +ceFAZolin 1GM INJ (J0690 PER 500MG) As Ordered ONE; +diphenhydrAMINE INJ 50MG/ML VIAL (J1200) As Ordered ONE; +fentaNYL 100 MCG/2 ML INJECTION (J3010) As Ordered ONE
[2019-12-24 07:30] LABS: INR 1.16; PROTHROMBIN TIME 14.5 SECONDS (11.8-14.0)
--- NOTE | 2019-12-24 07:47 | IRHP ---
[facility] IR Pre-Procedure H & P General Date of Service: Dec 24, 2019 Procedure: Same Day Surgery Interval History and Physical I have seen the patient and reviewed last H & P performed within 30 days. There is no significant interval change. History of Present Illness Chief Complaint The patient is a 84-year-old female admitted with a reason for visit of Ureteral Stones. PRE-PROCEDURE DIAGNOSIS:ureteral stone HEART: normal rate. LUNGS: normal breathing at rest. ASA Classification ASA Classification: III-Severe systemic dis. Mallampati Score: II NPO: Yes Problems with prior sedation: No Obstructive Sleep Apnea: No Plan moderate sedation Allergies Coded Allergies: alendronate sodium (Verified Allergy, Unknown, unknown, 12/22/19) ciprofloxacin (Verified Allergy, Unknown, rash/hives, 12/22/19) Home Medications Scheduled Acetaminophen (Tylenol Arthritis), 650 MG PO DAILY, (Reported) Carvedilol (Carvedilol), 6.25 MG PO BID, (Reported) Cyclosporine (Restasis), 1 DROP OU BID, (Reported) Dexamethasone (Dexamethasone), 2 MG PO BID, (Reported) Magnesium Oxide (Magnesium), 1 TAB PO DAILY, (Reported) Mesalamine (Pentasa), 500 MG PO BID, (Reported) Scheduled PRN Diclofenac Sodium (Diclofenac Sodium), 1 APLCT TOP Q6H PRN for PAIN, (Reported) Diphenhydramine HCl (Diphenhydramine HCl), 25 MG PO QHS PRN for INSOMNIA, (Reported) Hyoscyamine Sulfate (Hyoscyamine Sulfate), 0.125 MG PO Q4HP PRN for TERMINAL SECRETIONS Lorazepam (Lorazepam), 0.5 MG PO Q4HP PRN for ANXIETY/AGITATION Morphine Sulfate (Morphine Sulfate), 0.25-1 ML PO Q2H PRN for PAIN OR DYSPNEA Polyethylene Glycol 3350 (Miralax), 17 GRAM PO DAILY PRN for CONSTIPATION, (Reported) Propylene Glycol/Peg 400 (Systane 0.3-0.4% Eye Drops), 1 DROP OU BID PRN for DRY EYES, (Reported) Tramadol HCl (Tramadol HCl), 50 MG PO Q4H PRN for PAIN, (Reported) Discontinued Medications Amlodipine Besylate (Amlodipine Besylate), 5 MG PO DAILY, (Reported) Calcitriol (Rocaltrol), 0.5 MCG PO DAILY, (Reported) Ciprofloxacin HCl (Cipro), 250 MG PO BID Discontinued Reason: PCP discontinued med Warfarin Sodium (Warfarin Sodium), 1.25 MG PO QPM, (Reported) VS, I&O, 24H, Fishbone Vital Signs/I&O Vital Signs Date Time Temp Pulse Resp B/P (MAP) Pulse Ox O2 Delivery O2 Flow Rate FiO2 12/24/19 06:46 96.7 65 18 97 Room Air Laboratory Data 24H LABS Laboratory Tests 2 12/24/19 06:59: Prothrombin Time 14.5H, Prothromb Time International Ratio 1.16 DARIAN HERNANDEZ MD Dec 24, 2019 07:47
--- NOTE | 2019-12-24 08:49 | POST-OPPD ---
Postoperative Procedure Note Date Of Procedure: Dec 24, 2019 Time Of Procedure: 08:48 PREOPERATIVE DIAGNOSIS: ureteral stone POSTOPERATIVE DIAGNOSIS: same FINDINGS: same. nephU retracted back PROCEDURE: replaced left nephU stent SURGEON: hang ANESTHESIA: mod sed ESTIMATED BLOOD LOSS: < 5 ml COMPLICATIONS: none POSTOPERATIVE CONDITION: same DARIAN HERNANDEZ MD Dec 24, 2019 08:49
[2019-12-24 10:27] VITALS: BP 135/63
--- NOTE | 2019-12-25 09:14 | REP ---
IR Percutaneous nephro ureteral stent catheter placement using fluoroscopy guidance. IR nephrostogram and ureterogram. IR moderate sedation. Ultrasound of the left kidney. Clinical information: Ureteral stones. Patient initially presented to the hospital few weeks ago with hydronephrosis, ureteral stones and ureteral obstruction. Nephroureteral stent catheter was placed. The patient inadvertently pulled it out. Physician: Dr Recio. Procedure: The patient was advised of the benefits, risks and alternatives of the procedure and informed consent was obtained. The time-out was performed with verification of the patient's name, MRN, site of procedure and type of procedure to be performed. The patient was positioned in the prone position on the angiographic table. The site was prepped and draped in the usual sterile fashion. Moderate sedation was performed by the physician including the presence of an independent trained observer who assisted in monitoring the patient's level of consciousness and physiologic status. Following the administration of fentanyl and Versed, the physician spent 45 minutes of face to face time with the patient. A land management supervisor radiograph reveals a nephroureteral catheter retracted back into the proximal ureter. Ultrasound of the left kidney demonstrates no hydronephrosis. The anticipated puncture site on the flank was anesthetized with lidocaine. The catheter was cut and an Amplatz wire was advanced through the catheter under fluoroscopy guidance into the proximal ureter. The catheter was removed over the wire. A Kumpe catheter was advanced over the wire under fluoroscopy guidance into the proximal ureter. Injection of contrast confirms intra ureteral location. No significant hydronephrosis. Ureterogram demonstrates mid and distal ureteral obstruction. The ureter is not patent to the bladder. A Glidewire was advanced through the catheter and used to catheterize down the ureter, past the obstruction and into the bladder. The catheter was advanced over the wire into the bladder. Injection of contrast confirms location within the bladder. No extravasation. [place] wire exchanged for Amplatz wire which was advanced through the catheter down to the bladder, the catheter was removed over the wire. A 26 cm 8.5 [place] cope nephroureteral catheter stent was then advanced over the wire under fluoroscopy guidance into the bladder. The distal pigtail was formed in the bladder and the proximal pigtail was formed in the renal pelvis. Repeat ureterogram nephrostogram was performed confirming location within the renal collecting system and bladder. There is no hydronephrosis. The catheter was sutured in position with 2-0 Prolene and a sterile dressing was applied. The patient tolerated the procedure well and was returned to the PRU in stable condition. EBL: < 5 ml. Complications: None. Conclusion: 1. Nephrostogram and ureterogram demonstrate mid and distal ureteral obstruction. 2. Successful left sided nephro ureteral stent catheter placement. Will refer the patient to urology for possible stone removal. Patient to follow up in IR in 12 weeks for nephroureteral catheter exchange and/or complete internalization if appropriate. Thank you for this referral. Cc Dr. Sofi Ponce. Cc Dr. Mariusz Douglass. Electronically Signed by Sallie Recio MD 12/25/2019 09:13 A
== END ==
LOC: M IRPRO 06:02
PROVIDERS: ATTEND Radiology Diagnostic Radiology
DX: N20.1 Calculus of ureter (principal); Z88.1 Allergy status to other antibiotic agents; Z88.8 Allergy status to other drugs, medicaments and biological substances; Z79.899 Other long term (current) drug therapy
CPT/HCPCS: 50433; 85610; 99152; 99153; C1769; C1887; C2625; J0690; J1200; J2250; J3010; Q9967